=== PATIENT | male | born 1955 | race Caucasian/White ===

== ENCOUNTER 2017-02-17 14:55 | Inpatient (IN) ==
[2017-02-17] MEDS ORDERED: ALBUTEROL/IPRATROPIUM 2.5mg-0.5mg/3ml NEB IPPB ONE (15:06)
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
--- OUTSIDE RECORDS SUMMARY | 2017-02-17 16:15 | External Medical Summary | Referral Summary ---
:1955 Author Organization [facility] Address [address] [place] [address] Care Team Providers Name Role Phone Javad Womack V Primary Care Physician Encounter [facility] [id number] Date(s): 06/29/16 - 06/29/16 [facility] [address] [place] [address]- [place] Discharge Diagnosis: Shortness of breath Discharge Disposition: 01-Home or Self Care Attending Physician: Delicia Graves MD Admitting Physician: Delicia Graves MD Vital Signs No data available for this section Problem List Condition Effective Dates Status Health Status Informant Acute hepatitis C Resolved (disorder)(Confirmed) Acute hepatitis C without mention of Active hepatic coma(Confirmed) Chronic back pain syndrome- Active cervical, lumbar(Confirmed)1 Bronchitis (disorder)(Confirmed) Active BRONCHITIS, NOT SPECIFIED ACUTE Active OR CHRONIC(Confirmed) Carpal tunnel syndrome(Confirmed) Active COPD(Confirmed) < 12/29/13 Resolved Degenerative disorder of central Active nervous system(Confirmed) Generalized osteoarthritis Active (disorder)(Confirmed) Diabetes, type 2, unspec(Confirmed) Active Disorder of porphyrin metabolism Active (disorder)(Confirmed) Hypercholesterolemia(Confirmed) Active Infection of skin AND/OR Active subcutaneous tissue (disorder)(Confirmed) Left wrist fracture 03/31/11 Active (trapezium)(Confirmed) Low back pain (finding)(Confirmed) Active Osteoarthritis(Confirmed) Active Osteoporosis (disorder)(Confirmed) Active Osteoporosis(Confirmed) Active OTHER EMPHYSEMA(Confirmed) Active Encounter for chronic pain Active management(Confirmed) Polypharmacy(Confirmed) Active Porphyria(Confirmed) Active COPD, very severe(Confirmed) Active UNSPECIFIED LOCAL INFECTION OF SKIN Active AND SUBCUTANEOUS TISSUE(Confirmed) 1see conversion document. Allergies, Adverse Reactions, Alerts Substance Reaction Severity Status midazolam Active Valium Active Medications Advair Diskus 500 mcg-50 mcg inhalation powder See Instructions, INHALE 1 PUFF TWICE DAILY, # 60 g, 2 Refill(s), [id number], INHALE 1 PUFF TWICE DAILY Start Date: 04/04/16 Status: Orderedatorvastatin 10 mg oral tablet 10 mg 1 tabs, Oral, Daily, # 30 tabs, 6 Refill(s), [id number], 1 tabs OralDaily Start Date: 05/15/16 Status: Orderedazithromycin 250 mg oral tablet 250 mg 1 tabs, Oral, Mon/We/Fr, X 30 days, # 13 tabs, 2 Refill(s), Pharmacy: [facility] [id number], 1 tabs Oral Mon//,x30 days Start Date: 05/27/16 Stop Date: 08/25/16 Status: OrderedColace 100 mg oral capsule 100 mg 1 caps, Oral, BID, as needed for constipation, # 20 caps, 0 Refill(s) Start Date: 03/18/16 Status: OrderedDULoxetine 60 mg oral delayed release capsule 60 mg 1 caps, Oral, Daily, # 90 caps, 1 Refill(s), [id number], 1 caps OralDaily Start Date: 05/12/16 Status: Orderedfamotidine 20 mg oral tablet 20 mg 1 tabs, Oral, BID, # 60 tabs, 3 Refill(s), [id number], 1 tabs Oral BID Start Date: 05/12/16 Status: Orderedgabapentin 800 mg oral tablet See Instructions, TAKE 1 TABLET BY MOUTH FOUR TIMES DAILY, # 120 tabs, 3 Refill( s), OZIEL, [id number], TAKE 1 TABLET BY MOUTH FOUR TIMES DAILY Start Date: 05/12/16 Status: OrderedHome Oxygen (DME) DME Item Oxymizer pendant. Titrate SaO2 >90%. DX: J44.9 [place]: 99, See Instructions, # 1 Each,0 Refill(s), Supply Start Date: 05/25/16 Status: Orderedipratropium-albuterol 0.5 mg-2.5 mg/3 mLinhalation solution See Instructions, USE 3 ML VIA NEBULIZER THREE TIMES DAILY AND EVERY 2 HOURS NEEDED, # 270 mL, 2 Refill(s), eRx: [facility] [id number], USE 3 ML VIA NEBULIZER THREE TIMES DAILY AND EVERY 2 HOURS NEEDED Start Date: 03/31/16 Status: OrderedmetFORMIN 500 mg oral tablet See Instructions, TAKE 1 TABLET BY MOUTH TWICE DAILY WITH MORNING AND EVENING MEALS, # 180 tabs, eRx: [facility] [id number], TAKE 1 TABLET BY MOUTH TWICE DAILY WITH MORNING AND EVENING MEALS Start Date: 06/02/16 Status: Orderedmethadone 10 mg oral tablet 40 mg 4 tabs, Oral, QID, # 480 tabs, 0 Refill(s), WRITTEN 06/15/16 Start Date: 06/22/16 Stop Date: 07/22/16 Status: OrderedMiscellaneous DME DME Item NIPPV (PCV 15/5, rate 12, 6L O2) 99 months or lifetime, See Instructions, # 1 Each, 0 Refill(s), Supply Start Date: 03/18/16 Status: OrderedMS Contin 15 mg/12 hr oral tablet, extended release See Instructions, 1 Oral q 12 hrs to last 30 days, # 60 tabs, 0 Refill(s), written 06/15/16 Start Date: 06/18/16 Status: Orderedmultivitamin Daily, 0 Refill(s) Start Date: 03/18/16 Status: Orderedpotassium chloride 20 mEq oral tablet, extended release 20 mEq 1 tabs, Oral, Daily, 0 Refill(s) Start Date: 03/18/16 Status: OrderedSpiriva 18 mcg inhalation capsule See Instructions, INHALE THE CONTENTS OF 1 CAPSULE VIA HANDIHALER ONCE DAILY, # 30 caps, 2 Refill(s), eRx: [facility] [id number], INHALE THE CONTENTS OF 1 CAPSULE VIA HANDIHALER ONCE DAILY Start Date: 04/04/16 Status: OrderedTums 500 mg, Chewed, TID, 0 Refill(s) Start Date: 03/18/16 Status: Ordered Results No data available for this section Immunizations Given and Recorded Vaccine Date Status Refusal Reason tetanus/diphth/pertuss (Tdap) adult/adol 11/12/15 Given influenza virus vaccine, inactivated 03/30/16 Given influenza virus vaccine, inactivated 02/28/15 Given influenza virus vaccine, inactivated 02/09/14 Recorded influenza virus vaccine, live 03/23/13 Given influenza virus vaccine, live 02/01/12 Given influenza virus vaccine, live 04/20/11 Given pneumococcal 13-valent conjugate vaccine 03/30/16 Given pneumococcal 23-polyvalent vaccine 02/28/15 Given pneumococcal 23-polyvalent vaccine 03/16/05 Recorded tetanus/diphtheria/pertussis, acel(Tdap) 04/14/10 Recorded Procedures Procedure Date Related Diagnosis Body Site Laminectomy with spinal fusion1 02/12/16 Bone density scan2 05/26/13 left ulnar nerve decom/Lt CMC arthro w/ APL 2011 transf DEXA diag4 03/04/11 Right knee replacement 09/08/10 Left knee replacement 06/09/10 Colonoscopy 06/24/09 CR right distal radius (Buhr) acc5 11/03/07 Closed treatment left fibular fracture6 2007 Anterior cervical diskectomy fusion 06/09/06 Occult blood 05/14/06 Carpal tunnel release (bilateral) 2006 EGD gastritis 2004 Eye examination7 Neck surgery Right elbow release8 Tonsillectomy 1Z31-I1 fusion, T12-L1 Fanaycimoot8yevs scan due in [id number] next Wij1our Next Ugv9jmn Next Gen.6see Next Gen7no diabetic xihknvxaplq2bxb Next Gen. Social History Social History Type Response Smoking Status Former smoker; Type: Cigarettes; Tobacco use per day: 1 Pack; Number of years: 54; Date Last Use: Quit 08/2015. Assessment and Plan No data available for this section
--- OUTSIDE RECORDS SUMMARY | 2017-02-17 16:15 | External Medical Summary | Referral Summary ---
:1955 Author Organization [facility] Address [address] [place] [address] Care Team Providers Name Role Phone Javad Womack V Primary Care Physician Encounter [facility] Date(s): 06/29/16 - 06/29/16 [facility] [address] [place] [address]- [place] Discharge Diagnosis: COPD, very severe Discharge Diagnosis: Lung nodule Discharge Diagnosis: Chronic respiratory failure Discharge Disposition: 01-Home or Self Care Attending Physician: Delicia Graves MD Admitting Physician: Delicia Graves MD Vital Signs Most recent to oldest [Reference Range]: 1 Peripheral Pulse Rate [60-100 bpm] 83 bpm (06/29/16 3:28 PM) Respiratory Rate [14-20 br/min] 20 br/min (06/29/16 3:28 PM) Blood Pressure [90-140/60-90 mmHg] 113/87 mmHg (06/29/16 3:28 PM) SpO2 91 % (06/29/16 3:28 PM) Problem List Condition Effective Dates Status [...] DAILY, # 60 g, 2 Refill(s), eRx: [facility] [id number], INHALE 1 PUFF TWICE DAILY Start Date: 04/04/16 Status: Orderedatorvastatin 10 mg oral tablet 10 mg 1 tabs, Oral, Daily, # 30 tabs, 6 Refill(s), Pharmacy: [facility] [id number], 1 tabs OralDaily Start Date: 05/15/16 Status: Orderedazithromycin 250 mg oral tablet 250 mg 1 tabs, Oral, Mon/We/Fr, X 30 days, # 13 tabs, 2 Refill(s), Pharmacy: [facility] [id number], 1 tabs Oral Mon/We/Fr,x30 days Start Date: 05/27/16 Stop Date: 08/25/16 Status: OrderedColace 100 mg oral capsule 100 mg 1 caps, Oral, BID, as needed for constipation, # 20 caps, 0 Refill(s) Start Date: 03/18/16 Status: OrderedDULoxetine 60 mg oral delayed release capsule 60 mg 1 caps, Oral, Daily, # 90 caps, 1 Refill(s), Pharmacy: [facility] [id number], 1 caps OralDaily Start Date: 05/12/16 Status: Orderedfamotidine 20 mg oral tablet 20 mg 1 tabs, Oral, BID, # 60 tabs, 3 Refill(s), Pharmacy: [facility] [id number], 1 tabs Oral BID Start Date: 05/12/16 Status: Orderedgabapentin 800 mg oral tablet See Instructions, TAKE 1 TABLET BY MOUTH FOUR TIMES DAILY, # 120 tabs, 3 Refill( s), OZIEL, Pharmacy: [facility] [id number], TAKE 1 TABLET BY MOUTH FOUR TIMES [...] NEEDED, # 270 mL, 2 Refill(s), eRx: [facility] [id number], USE 3 ML VIA NEBULIZER THREE TIMES DAILY AND EVERY 2 HOURS NEEDED Start Date: 03/31/16 Status: OrderedmetFORMIN 500 mg oral tablet See Instructions, TAKE 1 TABLET BY MOUTH TWICE DAILY WITH MORNING AND EVENING MEALS, # 180 tabs, eRx: [facility] [id number], TAKE 1 TABLET BY MOUTH TWICE DAILY [...] DAILY, # 30 caps, 2 Refill(s), eRx: [facility], INHALE THE CONTENTS OF 1 CAPSULE VIA [...] nerve decom/Lt [facility]MC arthro w/ APL 2011 transf3 DEXA diag4 03/04/11 Right knee replacement 09/08/10 Left knee replacement 06/09/10 Colonoscopy 06/24/09 CR right distal radius (Buhr) acc5 11/03/07 Closed treatment left fibular fracture6 2007 Anterior cervical diskectomy fusion 06/09/06 Occult blood 05/14/06 Carpal tunnel release (bilateral) 2006 EGD gastritis 2004 Eye examination7 Neck surgery Right elbow release8 Tonsillectomy 4T45-N4 fusion, T12-L1 Nbrkfrcquvk4cjww scan due in [id number] next Meh0iya Next Cqi1wbq Next Gen.6see Next Gen7no diabetic zfzbszgluho0nzs Next Gen. Social History Social History Type Response Smoking Status Former smoker; Type: Cigarettes; Tobacco use per day: 1 Pack; Number of years: 54; Date Last Use: Quit 08/2015. Assessment and Plan Extracted from: Title: Office Visit Note Author: Delicia Graves MD Date: Assessment/Plan Very pleasant 60-year-old gentleman is here for follow-up 1.COPD, very severe Very severe COPD, end-stage Patient is very limited in terms of his activity level Patient is on maximal therapy He is on azithromycin to reduce risk of exacerbation Unfortunately noncompliant with his noninvasive ventilatorgiven that he has a constantly because of the BX. Advised shave his archuleta 6 minute walk testshowed very limited walking distance withsevere shortness of breath towards and80 HisBODE score is 8 with a 4 year survival of 18 percent 2.Lung nodule Concerningspiculated lung nodule with right paratracheal lymphadenopathy of unclear etiology We'll start with a PET scan given the highpretest probability of lung cancerand the high risk associated with biopsy at this point 3.Chronic respiratory failure Continue using grqgvo01/70 Patient was advised to use hisnoninvasive home ventilatorregularly at night to use risk ofacute and chronic respiratory failurehospitalization and even We'll schedule follow-up after PET scan
--- OUTSIDE RECORDS SUMMARY | 2017-02-17 16:16 | External Medical Summary | Referral Summary ---
:1955 Author Organization [facility] [place] [address] Care Team Providers Name Role Phone Javad Womack V Primary Care Physician Encounter [facility] Date(s): 02/28/15 - 02/28/15 [facility] [place] [address] Discharge Diagnosis: Chronic obstructive pulmonary disease Discharge Disposition: 01-Home or Self Care Attending Physician: Karen Garnica APRN Admitting Physician: Karen Garnica APRN Vital Signs Most recent to oldest [Reference Range]: 1 Temperature Tympanic [36.6-38.1 degC] 36.4 degC *LOW* (02/28/15 10:14 AM) Peripheral Pulse Rate [60-100 bpm] 88 bpm (02/28/15 10:14 AM) Blood Pressure [90-140/60-90 mmHg] 128/88 mmHg (02/28/15 10:14 AM) SpO2 82 % (02/28/15 10:14 AM) Problem List Condition Effective Dates Status Health [...] DAILY, # 60 g, 5 Refill(s), eRx: [facility] , INHALE 1 PUFF TWICE DAILY Start Date: 08/29/15 Status: Orderedatorvastatin 10 mg oral tablet See Instructions, TAKE 1 TABLET BY MOUTH EVERY NIGHT AT BEDTIME, # 30 tabs, 5 Refill(s), eRx: [facility] , TAKE 1 TABLET BY MOUTH EVERY NIGHT AT BEDTIME Start Date: 08/29/15 Status: OrderedCalcium 600+D 1 tabs, Oral, BID, 0 Refill(s) Start Date: 12/28/13 Status: Orderedclobetasol 0.05% topical ointment See Instructions, APPLY A THIN LAYER TOPICALLY TO THE AFFECTED AREA TWICE DAILY , # 45 g, 2 Refill(s), OZIEL, eRx: [facility] , APPLY A THIN LAYER TOPICALLY TO THE AFFECTED AREA TWICE DAILY Start Date: 03/20/14 Status: OrderedDULoxetine 60 mg oral delayed release capsule See Instructions, TAKE 1 CAPSULE BY MOUTH EVERY DAY, # 90 caps, eRx: [facility] , TAKE 1 CAPSULE BY MOUTH EVERY DAY Start Date: 08/29/15 Status: Orderedgabapentin 800 mg oral tablet See Instructions, TAKE 1 TABLET BY MOUTH FOUR TIMES DAILY, # 120 tabs, 5 Refill( s), OZIEL, eRx: [facility] , TAKE 1 TABLET BY MOUTH FOUR TIMES DAILY Start Date: 08/19/15 Status: OrderedGlucometer (DME) DME Item TRUETRACK OR TRUERESULTS METER DX 250.00, See Instructions, # 1 Each, 0 Refill(s), Pharmacy: [facility] [id number], TRUETRACK OR TRUERESULTS METER DX 250.00, Supply Start Date: 02/09/14 Status: OrderedGlucometer Lancets (DME) DME Item dx 250.00 check once daily lancet device for TRUETRACK OR TRUE RESULTS , See Instructions, # 1 Each, 0 Refill(s), Pharmacy: [facility] [id number] , dx 250.00 check once daily lancet device for TRUETRACK OR TRUE RESULTS, Supply Start Date: 02/09/14 Status: OrderedGlucometer strips (DME) DME Item truetest or trueresult meter test once daily dx 250.00, See Instructions, # 1 Each, 0 Refill(s), Pharmacy: [facility], truetest or trueresult meter test once daily dx 250.00, Supply Start Date: 02/09/14 Status: Orderedlevofloxacin 250 mg oral tablet See Instructions, TAKE ONE TABLET BY MOUTH DAILY, # 30 tabs, eRx: [facility] [id number], TAKE ONE TABLET BY MOUTH DAILY Start Date: 08/26/15 Status: OrderedmetFORMIN 500 mg oral tablet See Instructions, TAKE 1 TABLET BY MOUTH TWICE DAILY WITH MORNING AND EVENING MEALS, # 60 tabs, 5 Refill(s), [facility]Rx: [facility] [id number], TAKE 1 TABLET BY MOUTH TWICE DAILY WITH MORNING AND EVENINGMEALS Start Date: 11/28/14 Status: Orderedmethadone 10 mg oral tablet 30 mg 3 tabs, Oral, QID, MUST LAST ONE MONTH, # 360 tabs, 0 Refill(s) Start Date: 09/06/15 Status: OrderedMS Contin 60 mg/12 hours oral tablet, extended release 60 mg 1 tabs, Oral, q12hr, # 60 tabs, 0 Refill(s) Start Date: 09/06/15 Status: OrderedMucinex DM 30 mg-600 mg oral [...] DAILY, # 30 caps, 5 Refill(s), eRx: [facility] [address], INHALE THE CONTENTS OF 1 CAPSULE VIA HANDIHALER ONCE DAILY Start Date: 08/19/15 Status: OrderedVentolin HFA 2 puffs, Inhalation, QID, 0 Refill(s) Start Date: 12/28/13 Status: Ordered Results No data available for this section Immunizations Vaccine Date Refusal Reason influenza virus vaccine, inactivated 02/28/15 influenza virus vaccine, inactivated 02/09/14 influenza virus vaccine, live 03/23/13 influenza virus vaccine, live 02/01/12 influenza virus vaccine, live 04/20/11 pneumococcal 23-polyvalent vaccine 02/28/15 pneumococcal 23-polyvalent vaccine 03/16/05 tetanus/diphtheria/pertussis, acel(Tdap) 04/14/10 Procedures Procedure Date Related Diagnosis Body Site Bone density scan1 05/26/13 left ulnar nerve decom/Lt CMC arthro w/ APL 2011 transf DEXA diag3 03/04/11 Right knee replacement 09/08/10 Left knee replacement 06/09/10 Colonoscopy 06/24/09 CR right distal radius (Buhr) acc4 11/03/07 Closed treatment left fibular fracture5 2007 Anterior cervical diskectomy fusion 06/09/06 Occult blood 05/14/06 Carpal tunnel release (bilateral) 2006 EGD gastritis 2004 Eye examination6 Neck surgery Right elbow release7 Tonsillectomy 1next scan due in [id number] next Ahh2iyc Next Ogg9krb Next Gen.5see Next Gen6no diabetic gkibwrjgmpo2ydo Next Gen. Social History Social History Type Response Smoking Status Current every day smoker; Type: Cigarettes; Tobacco use per day : Less than Pack Assessment and Plan Extracted from: Title: Office Visit Note-O2 recert Author: Karen Garnica APRN Date: Assessment/Plan Chronic obstructive pulmonary disease Jvmn-nq-njkc evaluation for oxygen therapy. Patient qualifies. Continue long-term. Encourage compliance with medications. Encourage smoking cessation. High-dose influenza vaccine given today. Pneumovax given today. Follow up in office as previously recommended. Ordered: Office Visit Level 3 Est 51917
--- OUTSIDE RECORDS SUMMARY | 2017-02-17 16:16 | External Medical Summary | Referral Summary ---
:1955 Author Organization [facility] [address] [place] [address] Care Team Providers Name Role Phone Javad Womack V Primary Care Physician Encounter [facility] Date(s): 03/30/16 - 03/30/16 [facility] [place] [address] Discharge Diagnosis: Gastroenteritis Discharge Diagnosis: Compression fracture of L1 lumbar vertebra with routine healing Discharge Diagnosis: Diabetes Discharge Diagnosis: Chronic obstructive pulmonary disease Discharge Diagnosis: Encounter for chronic pain management Discharge Disposition: 01-Home or Self Care Attending Physician: Javad Womack MD Admitting Physician: Javad Womack MD Vital Signs Most recent to oldest [Reference Range]: 1 Temperature Tympanic [36.6-38.1 degC] 35.7 degC *LOW* (03/30/16 2:19 PM) Peripheral Pulse Rate [60-100 bpm] 91 bpm (03/30/16 2:19 PM) Blood Pressure [90-140/60-90 mmHg] 143/90 mmHg *HI* (03/30/16 2:19 PM) SpO2 82 % (03/30/16 2:19 PM) Problem List Condition Effective Dates Status [...] 1 PUFF TWICE DAILY, # 60 g, eRx: [email or web address] 28716, INHALE 1 PUFF TWICE DAILY Start Date: 02/24/16 Status: Orderedatorvastatin 10 mg oral tablet See Instructions, TAKE 1 TABLET BY MOUTH EVERY NIGHT AT BEDTIME, # 90 tabs, 1 Refill(s), Pharmacy: [facility] 53777, TAKE 1 TABLET BY MOUTH EVERY NIGHT AT BEDTIME Start Date: 03/04/16 Status: OrderedColace 100 mg oral capsule 100 mg 1 caps, Oral, BID, as needed for constipation, # 20 caps, 0 Refill(s) Start Date: 03/18/16 Status: OrderedDULoxetine 60 mg oral delayed release capsule 60 mg 1 caps, Oral, Daily, # 90 caps, 1 Refill(s), Pharmacy: [facility] 66387, 1 caps OralDaily Start Date: 11/29/15 Status: OrderedDuoNeb 0.5 mg-2.5 mg/3 mL inhalation solution 3 mL, NEB, TID, and every 2 hours as needed, # 270 mL, 0 Refill(s), Pharmacy: [facility] [address] Start Date: 03/19/16 Status: Orderedfamotidine 20 mg oral tablet 20 mg 1 tabs, Oral, BID, # 60 tabs, 0 Refill(s), Pharmacy: [email or web address] 19175, 1 tabs Oral BID Start Date: 03/19/16 Status: Orderedgabapentin 800 mg oral tablet See Instructions, TAKE 1 TABLET BY MOUTH FOUR TIMES DAILY, # 120 tabs, OZIEL, eRx : [email or web address] 42695, TAKE 1 TABLET BY MOUTH FOUR TIMES DAILY Start Date: 02/10/16 Status: Orderedmethadone 10 mg oral tablet 40 mg 4 tabs, Oral, QID, MUST LAST 30 DAYS, X 30 days, # 480 tabs, 0 Refill(s), WRITTEN 03/30/16 Start Date: 03/30/16 Stop Date: 04/29/16 Status: OrderedMiscellaneous DME DME Item NIPPV (PCV 15/5, rate 12, 6L O2) 99 months or lifetime, See Instructions, # 1 Each, 0 Refill(s), Supply Start Date: 03/18/16 Status: OrderedMS Contin 15 mg/12 hr oral tablet, extended release See Instructions, 1 tablet every 12 hours, # 42 tabs, 0 Refill(s) Start Date: 03/30/16 Status: Orderedmultivitamin Daily, 0 Refill(s) Start Date: 03/18/16 Status: Orderedondansetron 4 mg oral tablet, disintegrating 4 mg 1 tabs, Oral, q4hr, as needed nausea, # 30 tabs, 0 Refill(s), Pharmacy: [email or web address], 1 tabs Oral q4hr,PRN:as needed nausea Start Date: 03/18/16 Stop Date: 04/17/16 Status: Orderedpotassium chloride 20 mEq oral tablet, extended release 20 mEq 1 tabs, Oral, Daily, 0 Refill(s) Start Date: 03/18/16 Status: OrderedSpiriva 18 mcg inhalation capsule See Instructions, INHALE THE CONTENTS OF 1 CAPSULE VIA HANDIHALER ONCE DAILY, # 30 caps, eRx: [email or web address] [id number], INHALE THE CONTENTS OF 1 CAPSULE VIA HANDIHALER ONCE DAILY Start Date: 02/24/16 Status: OrderedTums 500 mg, Chewed, TID, 0 Refill(s) Start Date: 03/18/16 Status: Ordered Results Chemistry Most recent to oldest [Reference Range]: 1 Sodium Lvl [135-144 mEq/L] 139 mEq/L (03/30/16 3:13 PM) Potassium Lvl [3.5-5.2 mEq/L] 4.1 mEq/L (03/30/16 3:13 PM) Chloride [99-111 mEq/L] 99 mEq/L (03/30/16 3:13 PM) CO2 [23-31 mEq/L] 30 mEq/L (03/30/16 3:13 PM) AGAP [3-20] 10 (03/30/16 3:13 PM) BUN [8-26 mg/dL] 10 mg/dL (03/30/16 3:13 PM) Glucose Lvl [70-99 mg/dL] 113 mg/dL *HI* (03/30/16 3:13 PM) Creatinine Lvl [0.72-1.25 mg/dL] 0.69 mg/dL *LOW* (03/30/16 3:13 PM) eGFR [>60 mL/min] >60 mL/min 1 (03/30/16 3:13 PM) Calcium Lvl [8.9-10.5 mg/dL] 9.2 mg/dL (03/30/16 3:13 PM) 1Result Comment: Multiply eGFR results by 1.21 for race. Immunizations Vaccine Date Refusal Reason tetanus/diphth/pertuss (Tdap) adult/adol 11/12/15 influenza virus vaccine, inactivated 03/30/16 influenza virus vaccine, inactivated 02/28/15 influenza virus vaccine, inactivated 02/09/14 influenza virus vaccine, live 03/23/13 influenza virus vaccine, live 02/01/12 influenza virus vaccine, live 04/20/11 pneumococcal 13-valent conjugate vaccine 03/30/16 pneumococcal 23-polyvalent vaccine 02/28/15 pneumococcal 23-polyvalent vaccine [...] Carpal tunnel release (bilateral) 2006 EGD gastritis 2003 Eye examination7 Neck surgery Right elbow release8 Tonsillectomy 7I96-W4 fusion, T12-L1 Cejwqjgmkfr2eygj scan due in [id number] next Dqh4kmh Next Djr2pvf Next Gen.6see Next Gen7no diabetic hbhiyrgmhtz8aqh Next Gen. Social History Social History Type Response Smoking Status Former smoker Assessment and Plan Extracted from: Title: OV Author: Javad Womack MD Date: 03/30/16 Impression and Plan Diagnosis Chronic obstructive pulmonary disease (YVF20-JW J44.9, Discharge, Medical). Encounter for chronic pain management (LWG40-BL G89.29, Discharge, Medical). Compression fracture of L1 lumbar vertebra with routine healing (YAU60-EI S32.010D, Discharge, Medical). Gastroenteritis (FMQ45-OQ K52.9, Discharge, Medical). Diabetes (VNW96-FY E11.9, Discharge, Medical). Orders Orders (Selected) Outpatient Orders Future (On Hold) BMP: Prescriptions Prescribed MS Contin 15 mg/12 hr oral tablet, extended release: See Instructions, 1 tablet every 12 hours, 42 tabs, 0 Refill(s) methadone 10 mg oral tablet: 40 mg=4 tabs, Oral, QID, for 30 days, MUST LAST 30 DAYS, 480 tabs, 0 Refill(s).
--- OUTSIDE RECORDS SUMMARY | 2017-02-17 16:16 | External Medical Summary | Referral Summary ---
:1955 Author Organization [facility] Address [address] [place] [address] Care Team Providers Name Role Phone Javad Womack V Primary Care Physician Encounter VC Date(s): 05/25/16 - 05/25/16 [facility] [address] [place] [address]- [place] Discharge Diagnosis: COPD, severe Discharge Diagnosis: Chronic hypoxemic respiratory failure Discharge Disposition: -Home or Self Care Attending Physician: Delicia Graves MD Admitting Physician: Delicia Graves MD Referring Physician: Javad Womack MD Vital Signs Most recent to oldest [Reference Range]: 1 Peripheral Pulse Rate [60-100 bpm] 96 bpm (05/25/16 2:49 PM) Respiratory Rate [14-20 br/min] 18 br/min (05/25/16 2:49 PM) Blood Pressure [90-140/60-90 mmHg] 98/70 mmHg (05/25/16 2:49 PM) SpO2 90 % (05/25/16 2:49 PM) Problem List Condition Effective Dates Status [...] DAILY, # 60 g, 2 Refill(s), eRx: [facility] [id number], INHALE 1 PUFF TWICE DAILY Start Date: 04/04/16 Status: Orderedatorvastatin 10 mg oral tablet 10 mg 1 tabs, Oral, Daily, # 30 tabs, 6 Refill(s), Pharmacy: [facility] [id number], 1 tabs OralDaily Start Date: 05/15/16 Status: OrderedColace 100 mg oral capsule 100 mg 1 caps, Oral, BID, as needed for constipation, # 20 caps, 0 Refill(s) Start Date: 03/18/16 Status: OrderedDULoxetine 60 mg oral delayed release capsule 60 mg 1 caps, Oral, Daily, # 90 caps, 1 Refill(s), Pharmacy: [facility] [id number], 1 caps OralDaily Start Date: 05/12/16 Status: Orderedfamotidine 20 mg oral tablet 20 mg 1 tabs, Oral, BID, # 60 tabs, 3 Refill(s), Pharmacy: [facility] [id number], 1 tabs Oral BID Start Date: 05/12/16 Status: Orderedgabapentin 800 mg oral tablet See Instructions, TAKE 1 TABLET BY MOUTH FOUR TIMES DAILY, # 120 tabs, 3 Refill( s), OZIEL, Pharmacy: [facility] [id number], TAKE 1 TABLET BY MOUTH FOUR TIMES [...] NEEDED, # 270 mL, 2 Refill(s), eRx: [facility] [id number], USE 3 ML VIA NEBULIZER THREE TIMES DAILY AND EVERY 2 HOURS NEEDED Start Date: 03/31/16 Status: Orderedmethadone 10 mg oral tablet 40 mg 4 tabs, Oral, QID, X 30 days, # 480 tabs, 0 Refill(s) Start Date: 05/15/16 Stop Date: 06/14/16 Status: OrderedMiscellaneous DME DME Item NIPPV (PCV 21/09, rate 12, 6L O2) 99 months or lifetime, See Instructions, # 1 Each, 0 Refill(s), Supply Start Date: 03/18/16 Status: OrderedMS Contin 15 mg/12 hr oral tablet, extended release See Instructions, 1 Oral q 12 hrs to last 30 days, # 60 tabs, 0 Refill(s), written 05/15/16 Start Date: 05/15/16 Status: Orderedmultivitamin Daily, 0 Refill(s) Start Date: 03/18/16 Status: Orderedpotassium chloride 20 mEq oral tablet, extended release 20 mEq 1 tabs, Oral, Daily, 0 Refill(s) Start Date: 03/18/16 Status: OrderedSpiriva 18 mcg inhalation capsule See Instructions, INHALE THE CONTENTS OF 1 CAPSULE VIA HANDIHALER ONCE DAILY, # 30 caps, 2 Refill(s), eRx: [facility] [id number], INHALE THE CONTENTS OF 1 CAPSULE VIA [...] examination7 Neck surgery Right elbow release8 Tonsillectomy 3V13-U2 fusion, T12-L1 Kkrisedjgwf1saeq scan due in [address]pcb next Seo3clu Next Nhu9qvm Next Gen.6see Next Gen7no diabetic [id number] Next Gen. Social History Social History Type Response Smoking Status Former smoker; Type: Cigarettes; Tobacco use per day: 1 Pack; Number of years: 54; Date Last Use: Quit 08/2015. Assessment and Plan No data available for this section
--- OUTSIDE RECORDS SUMMARY | 2017-02-17 16:16 | External Medical Summary | Referral Summary ---
:1955 Author Organization [facility] [place] [address] Care Team Providers Name Role Phone Jonelle Womack V Primary Care Physician Encounter VC Date(s): 04/29/15 - 04/29/15 [facility] [place] [address] Discharge Diagnosis: Osteoporosis Discharge Diagnosis: Back pain Discharge Diagnosis: Porphyria Discharge Diagnosis: Tobacco abuse Discharge Diagnosis: History of hepatitis C Discharge Disposition: 01-Home or Self Care Attending Physician: Jonelle Womack MD Admitting Physician: Jonelle Womack MD Vital Signs Most recent to oldest [Reference Range]: 1 Temperature Tympanic [36.6-38.1 degC] 36.2 degC *LOW* (04/29/15 1:22 PM) Peripheral Pulse Rate [60-100 bpm] 66 bpm (04/29/15 1:22 PM) Blood Pressure [90-140/60-90 mmHg] 128/86 mmHg (04/29/15 1:22 PM) SpO2 93 % (04/29/15 1:22 PM) Problem List Condition Effective Dates Status [...] (disorder)(Confirmed) Active Osteoporosis(Confirmed) Active OTHER EMPHYSEMA(Confirmed) Active Porphyria(Confirmed) Active UNSPECIFIED LOCAL INFECTION OF SKIN Active AND SUBCUTANEOUS TISSUE(Confirmed) 1see conversion document. Allergies, Adverse Reactions, Alerts Substance Reaction Severity Status midazolam Active Medications Advair Diskus 250 mcg-50 mcg inhalation powder 1 puffs, Inhalation, BID, # 180 Each, 1 Refill(s), Pharmacy: [facility] [id number] Start Date: 12/27/14 Status: Orderedatorvastatin 10 mg oral tablet See Instructions, 1 TABS ORAL BEDTIME (ONCE A DAY), # 30 tabs, 5 Refill(s), Pharmacy: [facility] [id number], 1 TABS ORAL BEDTIME (ONCE A DAY) Start Date: 10/26/14 Status: OrderedCalcium 600+D 1 tabs, Oral, BID, 0 Refill(s) Start Date: 12/28/13 Status: Orderedclobetasol 0.05% topical ointment See Instructions, APPLY A THIN LAYER TOPICALLY TO THE AFFECTED AREA TWICE DAILY , # 45 g, 2 Refill(s), OZIEL, eRx: [facility] [id number], APPLY A THIN LAYER TOPICALLY TO THE AFFECTED AREA TWICE DAILY Start Date: 03/20/14 Status: OrderedDULoxetine 60 mg oral delayed release capsule 60 mg 1 caps, Oral, Daily, NOTE DOSE CHANGE, # 90 caps, 2 Refill(s), Pharmacy: [facility] [id number], 1 caps Oral Daily,Instr:NOTE DOSE CHANGE Start Date: 12/11/14 Status: Orderedgabapentin 800 mg oral tablet See Instructions, TAKE 1 TABLET BY MOUTH FOUR TIMES DAILY, # 120 tabs, 4 Refill( s), OZIEL, eRx: [facility] [id number], TAKE 1 TABLET BY MOUTH FOUR TIMES DAILY Start Date: 12/27/14 Status: OrderedGlucometer (DME) DME Item TRUETRACK OR TRUERESULTS METER DX 250.00, See Instructions, # 1 Each, 0 Refill(s), Pharmacy: [facility] [id number], TRUETRACK OR TRUERESULTS METER DX 250.00, Supply Start Date: 02/09/14 Status: OrderedGlucometer Lancets (DME) DME Item dx 250.00 check once daily lancet device for TRUETRACK OR TRUE RESULTS , See Instructions, # 1 Each, 0 Refill(s), Pharmacy: [facility] [id number] , dx 250.00 check once daily lancet device for TRUETRACK OR TRUE RESULTS, Supply Start Date: 02/09/14 Status: OrderedGlucometer strips (DME) DME Item truetest or trueresult meter test once daily dx 250.00, See Instructions, # 1 Each, 0 Refill(s), Pharmacy: [facility] [id number], truetest or trueresult meter test once daily dx 250.00, Supply Start Date: 02/09/14 Status: Orderedlevofloxacin 250 mg oral tablet See Instructions, TAKE ONE TABLET BY MOUTH DAILY, # 30 tabs, 2 Refill(s), [facility] [id number], TAKE ONE TABLET BY MOUTH DAILY Start Date: 03/19/15 Status: OrderedmetFORMIN 500 mg oral tablet See Instructions, TAKE 1 TABLET BY MOUTH TWICE DAILY WITH MORNING AND EVENING MEALS, # 60 tabs, 5 Refill(s), [facility] [id number], TAKE 1 TABLET BY MOUTH TWICE DAILY WITH MORNING AND EVENINGMEALS Start Date: 11/28/14 Status: Orderedmethadone 10 mg oral tablet 30 mg 3 tabs, Oral, QID, # 360 tabs, 0 Refill(s) Start Date: 04/08/15 Status: OrderedMS Contin 60 mg/12 hours oral tablet, extended release 60 mg 1 tabs, Oral, q12hr, # 60 tabs, 0 Refill(s) Start Date: 04/08/15 Status: OrderedMucinex DM 30 mg-600 mg oral [...] OrderedSpiriva 18 mcg inhalation capsule See Instructions, 1 EACH INHALATION DAILY, # 30 Each, 5 Refill(s), Pharmacy: [facility] [id number], 1 EACH INHALATION DAILY Start Date: 11/28/14 Status: OrderedVentolin HFA 2 puffs, Inhalation, QID, 0 Refill(s) Start Date: 12/28/13 Status: Ordered Results Chemistry Most recent to oldest [Reference Range]: 1 Total CK [30-200 U/L] 55 U/L (04/29/15 2:37 PM) LDL Direct [0-129 mg/dL] 111 mg/dL (04/29/15 2:37 PM) Hgb A1c [4.1-5.6 %] 6.3 % *HI* (04/29/15 2:37 PM) eAvg Glucose 134.1 mg/dL (04/29/15 2:37 PM) Immunizations Vaccine Date Refusal Reason influenza virus [...] elbow release7 Tonsillectomy 1next scan due in [id number] next Otv3cas Next Qlx1fdv Next Gen.5see Next Gen6no diabetic [id number] Next Gen. Social History Social History Type Response Smoking Status Current every day smoker; Type: Cigarettes; Tobacco use per day : Less than Pack Assessment and Plan Extracted from: Title: Get established Author: Jonelle Womack MD Date: 04/29/15 Assessment/Plan Back pain COPD, mild Ordered: Internal Referral to Pulmonology Diabetes mellitus, type 2 Ordered: Hemoglobin A1c History of hepatitis C Hyperlipemia Ordered: Creatine Kinase LDL Direct Osteoporosis Ordered: BD Bone Density DEXA Axial Skeleton Porphyria Tobacco abuse Orders: BD Bone Density DEXA Axial Skeleton Additional questions which may be sought from the old record include whether he had Reclast last year and how many years of Reclast he has had, the prior workup and management recommendations for porph yria, hepatitis C treatment and whether he is had a hepatitis C viral load test , and details about his previous neck surgery by Dr. Lai. I also have a question as to whether it is chand to continue the strategy of daily Levaquin. We discussed this. While it may help to suppress bacterial infection, it may also increase the risk of a resistant infection if he develops one. Based on his family history of a first-degree relative, he has do once again for colonoscopy. We will check CPK, direct LDL, A1c today. We will check bone density study in June, (which will be at least 2 years after the previous study). Referrals made to pulmonology and pain medicine. I advised I would approve a one-month supply of his opioid narcotics pending his getting established in pain medicine. Follow-up with me regarding o ther medical issues in one month or sooner if needed. Referrals to Other [id number], Do NOT utilize this order to schedule PFTs. PFTs need to be scheduled by calling [phone].Referring provider: DR JONELLE WOMACK Preference of which provider or first available?: FIRST AVAILABLEWhat is patient needing to be seen for (problem)?: COPD Has testing been done, and if so where (CXR, CTs, MRIs, Etc)?: N/APatient phone number: Referred by: Jonelle Womack MD
--- OUTSIDE RECORDS SUMMARY | 2017-02-17 16:16 | External Medical Summary | Referral Summary ---
:1955 Author Organization [facility] [place] [address] Care Team Providers Name Role Phone Javad Womack V Primary Care Physician Encounter VC Date(s): 05/31/15 - 05/31/15 [facility] [place] [address] Discharge Diagnosis: Encounter for chronic pain management Discharge Diagnosis: Disorder of porphyrin metabolism Discharge Diagnosis: Hepatitis-C Discharge Diagnosis: Back pain Discharge Diagnosis: Osteopenia Discharge Disposition: 01-Home or Self Care Attending Physician: Javad Womack MD Admitting Physician: Javad Womack MD Vital Signs Most recent to oldest [Reference Range]: 1 Temperature Tympanic [36.6-38.1 degC] 35.3 degC *LOW* (05/31/15 12:49 PM) Peripheral Pulse Rate [60-100 bpm] 96 bpm (05/31/15 12:49 PM) Blood Pressure [90-140/60-90 mmHg] 124/80 mmHg (05/31/15 12:49 PM) SpO2 91 % (05/31/15 12:49 PM) Problem List Condition Effective Dates Status [...] BID, # 180 Each, 1 Refill(s), Pharmacy: [facility] [id number] Start Date: 12/27/14 Status: OrderedAdvair Diskus 500 mcg-50 mcg inhalation powder 1 puffs, Inhalation, BID, # 60 Each, 3 Refill(s), Pharmacy: [facility] [id number] Start Date: 04/30/15 Status: Orderedatorvastatin 10 mg oral tablet See Instructions, 1 TABS ORAL BEDTIME (ONCE A DAY), # 30 tabs, eRx: [facility] [id number], 1 TABS ORAL BEDTIME (ONCE A DAY) Start Date: 05/07/15 Status: OrderedCalcium 600+D 1 tabs, Oral, BID, 0 Refill(s) Start Date: 12/28/13 Status: Orderedclobetasol 0.05% topical ointment See Instructions, APPLY A THIN LAYER TOPICALLY TO THE AFFECTED AREA TWICE DAILY , # 45 g, 2 Refill(s), OZIEL, eRx: [facility] [id number], APPLY A THIN LAYER TOPICALLY TO THE AFFECTED AREA TWICE DAILY Start Date: 03/20/14 Status: OrderedDULoxetine 60 mg oral delayed release capsule 60 mg 1 caps, Oral, Daily, NOTE DOSE CHANGE, # 90 caps, 2 Refill(s), Pharmacy: [facility] [id number], 1 caps Oral Daily,Instr:NOTE DOSE CHANGE Start Date: 12/11/14 Status: Orderedgabapentin 800 mg oral tablet See Instructions, TAKE 1 TABLET BY MOUTH FOUR TIMES DAILY, # 120 tabs, 4 Refill( s), OZIEL, eRx: [facility] [id number], TAKE 1 TABLET BY MOUTH FOUR TIMES DAILY Start Date: 12/27/14 Status: OrderedGlucometer (DME) DME Item TRUETRACK OR TRUERESULTS METER DX 250.00, See Instructions, # 1 Each, 0 Refill(s), Pharmacy: [facility] [facility] [place], TRUETRACK OR TRUERESULTS METER DX 250.00, Supply Start Date: 02/09/14 Status: OrderedGlucometer Lancets (DME) DME Item dx 250.00 check once daily lancet device for TRUETRACK OR TRUE RESULTS , See Instructions, # 1 Each, 0 Refill(s), Pharmacy: [facility] [place] [facility] [place] , dx 250.00 check once daily lancet device for TRUETRACK OR TRUE RESULTS, Supply Start Date: 02/09/14 Status: OrderedGlucometer strips (DME) DME Item truetest or trueresult meter test once daily dx 250.00, See Instructions, # 1 Each, 0 Refill(s), Pharmacy: [facility] [place], truetest or trueresult meter test once daily dx 250.00, Supply Start Date: 02/09/14 Status: Orderedlevofloxacin 250 mg oral tablet See Instructions, TAKE ONE TABLET BY MOUTH DAILY, # 30 tabs, 2 Refill(s), eRx: [facility] [facility] [place], TAKE ONE TABLET BY MOUTH DAILY Start Date: 03/19/15 Status: OrderedmetFORMIN 500 mg oral tablet See Instructions, TAKE 1 TABLET BY MOUTH TWICE DAILY WITH MORNING AND EVENING MEALS, # 60 tabs, 5 Refill(s), eRx: [facility] [place] [facility] [place], TAKE 1 TABLET BY MOUTH TWICE DAILY WITH MORNING AND EVENINGMEALS Start Date: 11/28/14 Status: Orderedmethadone 10 mg oral tablet 30 mg 3 tabs, Oral, QID, MAY FILL ON 05/08/15, # 360 tabs, 0 Refill(s) Start Date: 05/02/15 Status: OrderedMS Contin 60 mg/12 hours oral tablet, extended release 60 mg 1 tabs, Oral, q12hr, # 60 tabs, 0 Refill(s) Start Date: 05/08/15 Status: OrderedMucinex DM 30 mg-600 mg oral [...] DAILY, # 30 Each, 5 Refill(s), Pharmacy: [facility] [id number], 1 EACH INHALATION DAILY Start Date: 11/28/14 [...] elbow release7 Tonsillectomy 1next scan due in [id number] next Bxk1cga Next Soy7rbe Next Gen.5see Next Gen6no diabetic mbpiuqrsgjw5bmz Next Gen. Social History Social History Type Response Smoking Status Current every day smoker; Type: Cigarettes; Tobacco use per day : Less than Pack Assessment and Plan Extracted from: Title: CDM-chronic pain, others Author: Javad Womack MD Date: 05/31/15 Assessment/Plan Back pain Diabetes Ordered: Albumin Level Urine Disorder of porphyrin metabolism Encounter for chronic pain management Hepatitis-C Ordered: Hepatitis C RNA PCR Quantitative Osteopenia Ordered: BD Bone Density DEXA Axial Skeleton We will order a DEXA scan, and viral load hepatitis C test. Continue current pain management with follow-up on these issues in 3 months. At the end of the visit we also touched base on diabetes. He has always had good A1c's and his previous doctor told him not to worry about blood sugar testing. Looking back at his labs his last jose roalbumin test is somewhat remote and I will order that today. Plan to follow -up more regarding diabetes at his next visit with an A1c planned at that time.
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
--- OUTSIDE RECORDS SUMMARY | 2017-02-17 16:16 | External Medical Summary | Referral Summary ---
:1955 Author Organization [facility] Address [address] [place] [address] [place] [address] Care Team Providers Name Role Phone Javad Womack V Primary Care Physician Encounter VC Date(s): 05/01/15 - 05/01/15 [facility] [address] [place] [phone] Discharge Diagnosis: Contusion of left wrist Discharge Disposition: 01-Home or Self Care Attending Physician: Francesco Sheridan MD Admitting Physician: Francesco Sheridan MD Vital Signs Most recent to oldest [Reference Range]: 1 Temperature Tympanic [36.6-38.1 degC] 36.0 degC *LOW* (05/01/15 1:50 PM) Peripheral Pulse Rate [60-100 bpm] 84 bpm (05/01/15 1:50 PM) Respiratory Rate [14-20 br/min] 20 br/min (05/01/15 1:50 PM) Blood Pressure [90-140/60-90 mmHg] 130/76 mmHg (05/01/15 1:50 PM) SpO2 92 % (05/01/15 1:50 PM) Problem List Condition Effective Dates Status [...] BID, # 180 Each, 1 Refill(s), Pharmacy: [facility] [id number] Start Date: 12/27/14 Status: OrderedAdvair Diskus 500 mcg-50 mcg inhalation powder 1 puffs, Inhalation, BID, # 60 Each, 3 Refill(s), Pharmacy: [facility] 37758 Start Date: 04/30/15 Status: Orderedatorvastatin 10 mg oral tablet See Instructions, 1 TABS ORAL BEDTIME (ONCE A DAY), # 30 tabs, 5 Refill(s), [facility] [address], 1 TABS ORAL BEDTIME (ONCE A DAY) Start Date: 10/26/14 Status: OrderedCalcium 600+D 1 tabs, Oral, BID, 0 Refill(s) Start Date: 12/28/13 Status: Orderedclobetasol 0.05% topical ointment See Instructions, APPLY A THIN LAYER TOPICALLY TO THE AFFECTED AREA TWICE DAILY , # 45 g, 2 Refill(s), OZIEL, eRx: [facility] 14330, APPLY A THIN LAYER TOPICALLY TO THE AFFECTED AREA TWICE DAILY Start Date: 03/20/14 Status: OrderedDULoxetine 60 mg oral delayed release capsule 60 mg 1 caps, Oral, Daily, NOTE DOSE CHANGE, # 90 caps, 2 Refill(s), Pharmacy: [facility] 77860, 1 caps Oral Daily,Instr:NOTE DOSE CHANGE Start Date: 12/11/14 Status: Orderedgabapentin 800 mg oral tablet See Instructions, TAKE 1 TABLET BY MOUTH FOUR TIMES DAILY, # 120 tabs, 4 Refill( s), OZIEL, eRx: [facility] [id number], TAKE 1 TABLET BY MOUTH FOUR TIMES DAILY Start Date: 12/27/14 Status: OrderedGlucometer (DME) DME Item TRUETRACK OR TRUERESULTS METER DX 250.00, See Instructions, # 1 Each, 0 Refill(s), Pharmacy: [facility], TRUETRACK OR TRUERESULTS METER DX 250.00, Supply Start Date: 02/09/14 Status: OrderedGlucometer Lancets (DME) DME Item dx 250.00 check once daily lancet device for TRUETRACK OR TRUE RESULTS , See Instructions, # 1 Each, 0 Refill(s), Pharmacy: [facility] , dx 250.00 check once daily lancet device for TRUETRACK OR TRUE RESULTS, Supply Start Date: 02/09/14 Status: OrderedGlucometer strips (DME) DME Item truetest or trueresult meter test once daily dx 250.00, See Instructions, # 1 Each, 0 Refill(s), Pharmacy: [facility], truetest or trueresult meter test once daily dx 250.00, Supply Start Date: 02/09/14 Status: Orderedlevofloxacin 250 mg oral tablet See Instructions, TAKE ONE TABLET BY MOUTH DAILY, # 30 tabs, 2 Refill(s), eRx: [facility], TAKE ONE TABLET BY MOUTH DAILY Start Date: 03/19/15 Status: OrderedmetFORMIN 500 mg oral tablet See Instructions, TAKE 1 TABLET BY MOUTH TWICE DAILY WITH MORNING AND EVENING MEALS, # 60 tabs, 5 Refill(s), eRx: [facility], TAKE 1 TABLET BY MOUTH TWICE DAILY [...] DAILY, # 30 Each, 5 Refill(s), [facility], 1 EACH INHALATION DAILY Start Date: 11/28/14 [...] elbow release7 Tonsillectomy 1next scan due in [address]agf next Xpg5orq Next Vxw5kzp Next Gen.5see Next Gen6no diabetic dyfcymzfwtq3lqs Next Gen. Social History Social History Type Response Smoking Status Current every day smoker; Type: Cigarettes; Tobacco use per day : Less than Pack Assessment and Plan Extracted from: Title: Office Visit Note Author: Francesco Sheridan MD Date: 05/01/15 Assessment/Plan Contusion of left wrist X-ray doesn't show any obvious fracture. I recommended a splint ice and restavoid any heavy lifting or heavy usage over the next few days. He is Early garret number of c hronic pain medications will continue to use those. If he has ongoing problems or further concerns he should follow-up. Pain in left wrist See above plan Ordered: XR Wrist Complete Left
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
--- OUTSIDE RECORDS SUMMARY | 2017-02-17 16:17 | External Medical Summary | Referral Summary ---
:1955 Author [facility] Address [address] [place] [address] [place] [address] Care Team Providers Name Role Phone Pasha Pack Primary Care Physician Encounter VC Date(s): 10/17/14 - 10/17/14 [facility] [address] [place] [phone] [place] Discharge Disposition: 01-Home or Self Care Attending Physician: Pasha Pack MD Admitting Physician: Pasha Pack MD Vital Signs Most recent to oldest [Reference Range]: 1 Temperature Tympanic [36.6-38.1 degC] 37.1 degC (10/17/14 11:06 AM) Peripheral Pulse Rate [60-100 bpm] 72 bpm (10/17/14 11:06 AM) Blood Pressure [90-140/60-90 mmHg] 114/72 mmHg (10/17/14 11:06 AM) SpO2 90 % (10/17/14 11:06 AM) Problem List Condition Effective Dates Status [...] BID, # 180 Each, 1 Refill(s), Pharmacy: [facility] [address] Start Date: 12/27/14 Status: Orderedatorvastatin 10 mg oral tablet See Instructions, 1 TABS ORAL BEDTIME (ONCE A DAY), # 30 tabs, 5 Refill(s), [facility] [place], 1 TABS ORAL BEDTIME (ONCE A DAY) Start Date: 10/26/14 Status: OrderedCalcium 600+D 1 tabs, Oral, BID, 0 Refill(s) Start Date: 12/28/13 Status: Orderedclobetasol 0.05% topical ointment See Instructions, APPLY A THIN LAYER TOPICALLY TO THE AFFECTED AREA TWICE DAILY , # 45 g, 2 Refill(s), OZIEL, eRx: [facility] [facility], APPLY A THIN LAYER TOPICALLY TO THE AFFECTED AREA TWICE DAILY Start Date: 03/20/14 Status: OrderedDULoxetine 60 mg oral delayed release capsule 60 mg 1 caps, Oral, Daily, NOTE DOSE CHANGE, # 90 caps, 2 Refill(s), Pharmacy: [facility] 55083, 1 caps Oral Daily,Instr:NOTE DOSE CHANGE Start Date: 12/11/14 Status: Orderedgabapentin 800 mg oral tablet See Instructions, TAKE 1 TABLET BY MOUTH FOUR TIMES DAILY, # 120 tabs, 4 Refill( s), OZIEL, eRx: [facility] 67518, TAKE 1 TABLET BY MOUTH FOUR TIMES DAILY Start Date: 12/27/14 Status: OrderedGlucometer (DME) DME Item TRUETRACK OR TRUERESULTS METER DX 250.00, See Instructions, # 1 Each, 0 Refill(s), Pharmacy: [facility] 18381, TRUETRACK OR TRUERESULTS METER DX 250.00, Supply Start Date: 02/09/14 Status: OrderedGlucometer Lancets (DME) DME Item dx 250.00 check once daily lancet device for TRUETRACK OR TRUE RESULTS , See Instructions, # 1 Each, 0 Refill(s), Pharmacy: [facility] 1988[address] , dx 250.00 check once daily lancet device for TRUETRACK OR TRUE RESULTS, Supply Start Date: 02/09/14 Status: OrderedGlucometer strips (DME) DME Item truetest or trueresult meter test once daily dx 250.00, See Instructions, # 1 Each, 0 Refill(s), Pharmacy: [facility] 57662, truetest or trueresult meter test once daily dx 250.00, Supply Start Date: 02/09/14 Status: Orderedlevofloxacin 250 mg oral tablet See Instructions, TAKE ONE TABLET BY MOUTH DAILY, # 30 tabs, 2 Refill(s), eRx: [facility] 85372, TAKE ONE TABLET BY MOUTH DAILY Start Date: 03/19/15 Status: OrderedmetFORMIN 500 mg oral tablet See Instructions, TAKE 1 TABLET BY MOUTH TWICE DAILY WITH MORNING AND EVENING MEALS, # 60 tabs, 5 Refill(s), eRx: [facility] 51152, TAKE 1 TABLET BY MOUTH TWICE DAILY [...] DAILY, # 30 Each, 5 Refill(s), Pharmacy: [facility] 04571, 1 EACH INHALATION DAILY Start Date: 11/28/14 Status: OrderedVentolin HFA 2 puffs, Inhalation, QID, 0 Refill(s) Start Date: 12/28/13 Status: Ordered Results Hematology Most recent to oldest [Reference Range]: 1 WBC [4.8-10.8 10*3/uL] 6.6 10*3/uL (10/17/14 11:44 AM) RBC [4.60-6.20 10*6/uL] 4.94 10*6/uL (10/17/14 11:44 AM) Hgb [14.0-18.0 gm/dL] 13.4 gm/dL *LOW* (10/17/14:44 AM) Hct [42.0-52.0 %] 42.8 % (10/17/14 11:44 AM) MCV [82.0-99.0 fL] 86.6 fL (10/17/14 11:44 AM) MCH [27.0-32.0 pg] 27.1 pg (10/17/14:44 AM) MCHC [32.0-36.0 gm/dL] 31.3 gm/dL *LOW* (10/17/14 11:44 AM) RDW [11.5-14.5 %] 17.0 % *HI* (10/17/14 11:44 AM) Platelet [150-400 10*3/uL] 204 10*3/uL (10/17/14 11:44 AM) MPV [8.8-14.8 fL] 9.7 fL (10/17/14 11:44 AM) Immature Granulocytes [0.0-1.0 %] 0.2 % (10/17/14 11:44 AM) Neutrophils [51-75 %] 56 % (10/17/14 11:44 AM) Lymphocytes [20-46 %] 33 % (10/17/14 11:44 AM) Monocytes [4-11 %] 9 % (10/17/14 11:44 AM) Eosinophils [0-4 %] 3 % (10/17/14 11:44 AM) Basophils [0-2 %] 1 % (10/17/14 11:44 AM) Neutro Absolute [1.90-7.00 10*3] 3.65 10*3 (10/17/14 11:44 AM) Lymph Absolute [0.80-3.30 10*3] 2.15 10*3 (10/17/14 11:44 AM) [place] Absolute [0.30-1.00 10*3] 0.56 10*3 (10/17/14 11:44 AM) Eos Absolute [0.00-0.50 10*3] 0.17 10*3 (10/17/14 11:44 AM) Baso Absolute [0.00-0.20 10*3] 0.03 10*3 (10/17/14 11:44 AM) Chemistry Most recent to oldest [Reference Range]: 1 Sodium Lvl [135-144 mEq/L] 146 mEq/L *HI* (10/17/14:44 AM) Potassium Lvl [3.5-5.2 mEq/L] 4.5 mEq/L (10/17/14:44 AM) Chloride [99-111 mEq/L] 100 mEq/L (10/17/14:44 AM) CO2 [23-31 mEq/L] 37 mEq/L *HI* (10/17/14:44 AM) AGAP [3-20] 9 (10/17/14:44 AM) BUN [8-26 mg/dL] 7 mg/dL *LOW* (10/17/14:44 AM) Glucose Lvl [70-99 mg/dL] 116 mg/dL *HI* (10/17/14:44 AM) Creatinine Lvl [0.72-1.25 mg/dL] 0.74 mg/dL (10/17/14:44 AM) eGFR [>60 mL/min] >60 mL/min 1 (10/17/14:44 AM) Calcium Lvl [8.9-10.5 mg/dL] 9.6 mg/dL (10/17/14:44 AM) Albumin Lvl [3.4-4.8 gm/dL] 4.2 gm/dL (10/17/14:44 AM) Total Protein [6.2-8.1 gm/dL] 7.0 gm/dL (6/10/15 11:44 AM) Globulin [1.8-4.0 gm/dL] 2.8 gm/dL (10/17/14 11:44 AM) ALT [0-55 U/L] 12 U/L (10/17/14 11:44 AM) AST [5-34 U/L] 21 U/L (10/17/14 11:44 AM) Alk Phos [40-150 U/L] 91 U/L (10/17/14 11:44 AM) Bili Total [0.2-1.2 mg/dL] 0.4 mg/dL (10/17/14 11:44 AM) 25-Hydroxy D2 <7 ng/mL (10/17/14:44 AM) 25-Hydroxy D3 45 ng/mL (10/17/14:44 AM) 25-Hydroxy D Total [30-74 ng/mL] 45 ng/mL 2 (10/17/14 11:44 AM) LDL Direct [0-129 mg/dL] 97 mg/dL (10/17/14 11:44 AM) Hgb A1c [4.1-5.6 %] 6.4 % *HI* (10/17/14 11:44 AM) eAvg Glucose 137.0 mg/dL (10/17/14 11:44 AM) 1Result Comment: Multiply eGFR results by 1.21 for race.2Result Comment: The desirable level of 25-Hydroxy Vitamin D Total(D2 + D3 ) is 30-74 ng/mL. A level consistently >200 is potentially toxic. Immunizations Vaccine Date Refusal Reason influenza virus [...] elbow release7 Tonsillectomy 1next [place] due in [address]kav next Ivj7rvs Next Nql8eaz Next Gen.5see Next Gen6no diabetic ewrufirrywn3wcj Next Gen. Social History Social History Type Response Smoking Status Current every day smoker; Type: Cigarettes; Tobacco use per day : Less than Pack Assessment and Plan Extracted from: Title: Office Visit Note Author: Pasha Pack MD Date: 10/17/14 Assessment/Plan Anemia Chronic back pain syndrome- cervical, lumbar COPD Diabetes, type 2, unspec Ordered: Hemoglobin A1c Hypercholesterolemia Ordered: Comprehensive Metabolic Panel LDL Direct Osteoporosis Ordered: Vitamin D 25 Hydroxy Level Porphyria Plan: Continue all current medications. I would like to check lab tests. I want you to follow-up in 3 months. Having any problems in the meantime let me know. Call when you need refills on medications. Ordered: CBC w/ Differential
--- OUTSIDE RECORDS SUMMARY | 2017-02-17 16:17 | External Medical Summary | Referral Summary ---
:1955 Author Organization [facility] [address] [place] [address] Care Team Providers Name Role Phone Javad Womack V Primary Care Physician Encounter VC HILARY [id number] Date(s): 08/08/15 - 08/08/15 [facility] [address] [place] [phone] [place] Discharge Diagnosis: Encounter for chronic pain management Discharge Diagnosis: Hypoxia Discharge Diagnosis: Chronic obstructive pulmonary disease Discharge Diagnosis: Diabetes Discharge Disposition: 01-Home or Self Care Attending Physician: Javad Womack MD Admitting Physician: Javad Womack MD Vital Signs Most recent to oldest [Reference Range]: 1 Peripheral Pulse Rate [60-100 bpm] 89 bpm (08/08/15 3:43 PM) Blood Pressure [90-140/60-90 mmHg] 122/88 mmHg (08/08/15 3:43 PM) SpO2 77 % (08/08/15 3:43 PM) Problem List Condition Effective Dates Status [...] midazolam Active Valium Active Medications Advair Diskus 250 mcg-50 mcg inhalation powder 1 puffs, Inhalation, BID, # 180 Each, 1 Refill(s), Pharmacy: [facility] [address] Start Date: 12/27/14 Status: OrderedAdvair Diskus 500 mcg-50 mcg inhalation powder 1 puffs, Inhalation, BID, # 60 Each, 3 Refill(s), Pharmacy: [facility] [address]114 Start Date: 04/30/15 Status: Orderedatorvastatin 10 mg oral tablet See Instructions, 1 TABS ORAL BEDTIME (ONCE A DAY), # 30 tabs, 1 Refill(s), eRx : [facility] , 1 TABS ORAL BEDTIME (ONCE A DAY) Start Date: 07/01/15 Status: OrderedCalcium 600+D 1 tabs, Oral, BID, 0 Refill(s) Start Date: 12/28/13 Status: Orderedclobetasol 0.05% topical ointment See Instructions, APPLY A THIN LAYER TOPICALLY TO THE AFFECTED AREA TWICE DAILY , # 45 g, 2 Refill(s), OZIEL, eRx: [facility] , APPLY A THIN LAYER TOPICALLY TO THE AFFECTED AREA TWICE DAILY Start Date: 03/20/14 Status: OrderedDULoxetine 60 mg oral delayed release capsule 60 mg 1 caps, Oral, Daily, NOTE DOSE CHANGE, # 90 caps, 2 Refill(s), Pharmacy: [facility] 50418, 1 caps Oral Daily,Instr:NOTE DOSE CHANGE Start Date: 12/11/14 Status: Orderedgabapentin 800 mg oral tablet See Instructions, TAKE 1 TABLET BY MOUTH FOUR TIMES DAILY, # 120 tabs, OZIEL, eRx : [facility] , TAKE 1 TABLET BY MOUTH FOUR TIMES DAILY Start Date: 07/15/15 Status: OrderedGlucometer (DME) DME Item TRUETRACK OR TRUERESULTS METER DX 250.00, See Instructions, # 1 Each, 0 Refill(s), Pharmacy: [facility] 55484, TRUETRACK OR TRUERESULTS METER DX 250.00, Supply Start Date: 02/09/14 Status: OrderedGlucometer Lancets (DME) DME Item dx 250.00 check once daily lancet device for TRUETRACK OR TRUE RESULTS , See Instructions, # 1 Each, 0 Refill(s), Pharmacy: [facility] [address] , dx 250.00 check once daily lancet device for TRUETRACK OR TRUE RESULTS, Supply Start Date: 02/09/14 Status: OrderedGlucometer strips (DME) DME Item truetest or trueresult meter test once daily dx 250.00, See Instructions, # 1 Each, 0 Refill(s), Pharmacy: [facility] [address], truetest or trueresult meter test once daily dx 250.00, Supply Start Date: 02/09/14 Status: Orderedlevofloxacin 250 mg oral tablet See Instructions, TAKE ONE TABLET BY MOUTH DAILY, # 30 tabs, 2 Refill(s), [facility], TAKE ONE TABLET BY MOUTH DAILY Start Date: 03/19/15 Status: OrderedmetFORMIN 500 mg oral tablet See Instructions, TAKE 1 TABLET BY MOUTH TWICE DAILY WITH MORNING AND EVENING MEALS, # 60 tabs, 5 Refill(s), eRx: [facility] [address], TAKE 1 TABLET BY MOUTH TWICE DAILY WITH MORNING AND EVENINGMEALS Start Date: 11/28/14 Status: Orderedmethadone 10 mg oral tablet 30 mg 3 tabs, Oral, QID, MUST LAST ONE MONTH, # 360 tabs, 0 Refill(s) Start Date: 08/05/15 Status: OrderedMS Contin 60 mg/12 hours oral tablet, extended release 60 mg 1 tabs, Oral, q12hr, # 60 tabs, 0 Refill(s) Start Date: 08/05/15 Status: OrderedMucinex DM 30 mg-600 mg oral [...] Instructions, 1 EACH INHALATION DAILY, # 30 unknown unit, eRx: [facility] [address], 1 EACH INHALATION DAILY Start Date: 07/15/15 Status: OrderedVentolin HFA 2 puffs, Inhalation, QID, [...] elbow release7 Tonsillectomy 1next scan [place] in [address]ysy next Nwm5qjg Next Zeo1fnr Next Gen.5see Next Gen6no diabetic njdntvyniqf5xqc Next Gen. Social History Social History Type Response Smoking Status Current every day smoker; Type: Cigarettes; Tobacco use per day : Less than Pack Assessment and Plan No data available for this section
--- OUTSIDE RECORDS SUMMARY | 2017-02-17 16:17 | External Medical Summary | Referral Summary ---
:1955 Author Organization [facility] [address] [place] [address] Care Team Providers Name Role Phone Pasha Pack Primary Care Physician Encounter VC Date(s): 02/28/15 - 02/28/15 [facility] [address] [place] [phone] [place] Discharge Diagnosis: [...] BID, # 180 Each, 1 Refill(s), Pharmacy: [facility] [address] Start Date: 12/27/14 Status: Orderedatorvastatin 10 mg oral tablet See Instructions, 1 TABS ORAL BEDTIME (ONCE A DAY), # 30 tabs, 5 Refill(s), Pharmacy: [facility] [address], 1 TABS ORAL BEDTIME (ONCE A DAY) Start Date: 10/26/14 Status: OrderedCalcium 600+D 1 tabs, Oral, BID, 0 Refill(s) Start Date: 12/28/13 Status: Orderedclobetasol 0.05% topical ointment See Instructions, APPLY A THIN LAYER TOPICALLY TO THE AFFECTED AREA TWICE DAILY , # 45 g, 2 Refill(s), OZIEL, eRx: [facility], APPLY A THIN LAYER TOPICALLY TO THE AFFECTED AREA TWICE DAILY Start Date: 03/20/14 Status: OrderedDULoxetine 60 mg oral delayed release capsule 60 mg 1 caps, Oral, Daily, NOTE DOSE CHANGE, # 90 caps, 2 Refill(s), Pharmacy: [facility], 1 caps Oral Daily,Instr:NOTE DOSE CHANGE Start Date: 12/11/14 Status: Orderedgabapentin 800 mg oral tablet See Instructions, TAKE 1 TABLET BY MOUTH FOUR TIMES DAILY, # 120 tabs, 4 Refill( s), OZIEL, eRx: [facility] [id number], TAKE 1 TABLET BY MOUTH FOUR TIMES DAILY Start Date: 12/27/14 Status: OrderedGlucometer (DME) DME Item TRUETRACK OR TRUERESULTS METER DX 250.00, See Instructions, # 1 Each, 0 Refill(s), Pharmacy: [facility] [address]105, TRUETRACK OR TRUERESULTS METER DX 250.00, Supply Start Date: 02/09/14 Status: OrderedGlucometer Lancets (DME) DME Item dx 250.00 check once daily lancet device for TRUETRACK OR TRUE RESULTS , See Instructions, # 1 Each, 0 Refill(s), Pharmacy: [facility] [address] , dx 250.00 check once daily lancet device for TRUETRACK OR TRUE RESULTS, Supply Start Date: 02/09/14 Status: OrderedGlucometer strips (DME) DME Item truetest or trueresult meter test once daily dx 250.00, See Instructions, # 1 Each, 0 Refill(s), Pharmacy: [facility], truetest or trueresult meter test once daily dx 250.00, Supply Start Date: 02/09/14 Status: Orderedlevofloxacin 250 mg oral tablet See Instructions, TAKE ONE TABLET BY MOUTH DAILY, # 30 tabs, 1 Refill(s), eRx: [facility] [id number], TAKE ONE TABLET BY MOUTH DAILY Start Date: 01/21/15 Status: OrderedmetFORMIN 500 mg oral tablet See Instructions, TAKE 1 TABLET BY MOUTH TWICE DAILY WITH MORNING AND EVENING MEALS, # 60 tabs, 5 Refill(s), eRx: [facility] [address], TAKE 1 TABLET BY MOUTH TWICE DAILY WITH MORNING AND EVENINGMEALS Start Date: 11/28/14 Status: Orderedmethadone 10 mg oral tablet 30 mg 3 tabs, Oral, QID, # 360 tabs, 0 Refill(s) Start Date: 02/05/15 Status: OrderedMS Contin 60 mg/12 hours oral tablet, extended release 60 mg 1 tabs, Oral, q12hr, # 60 tabs, 0 Refill(s) Start Date: 02/05/15 Status: OrderedMucinex DM 30 mg-600 mg oral [...] DAILY, # 30 Each, 5 Refill(s), Pharmacy: [facility] [address], 1 EACH INHALATION DAILY Start Date: 11/28/14 [...] elbow release7 Tonsillectomy 1next [place] due in [address]mpz next Mjc8jjv Next Svu2mhx Next Gen.5see Next Gen6no diabetic vxbrcffiojs4wqd Next Gen. Social History Social History Type Response Smoking Status Current every day smoker; Type: Cigarettes; Tobacco use per day : Less than Pack Assessment and Plan Extracted from: Title: Office Visit Note-O2 recert Author: Karen Garnica INSTRUCTIONAL DESIGN SPECIALIST Date: Assessment/Plan Chronic obstructive pulmonary disease Ezpa-ts-mgvr evaluation for oxygen therapy. Patient qualifies. Continue long-term. Encourage compliance with medications. Encourage smoking cessation. High-dose influenza vaccine given today. Pneumovax given today. Follow up in office as previously recommended. Ordered: Office Visit Level 3 Est [id number]
--- OUTSIDE RECORDS SUMMARY | 2017-02-17 16:17 | External Medical Summary | Referral Summary ---
:1955 Author Organization [facility] [address] [place] [id number] Care Team Providers Name Role Phone Javad Womack V Primary Care Physician Encounter VC Date(s): 01/22/15 - 01/22/15 [facility] [address] [place] [phone] [place] Discharge Diagnosis: Hypercholesterolemia Discharge Diagnosis: COPD Discharge Diagnosis: Diabetes Discharge Diagnosis: Back pain Discharge Disposition: 01-Home or Self Care Attending Physician: Pasha Pack MD Admitting Physician: Pasha Pack MD Vital Signs Most recent to oldest [Reference Range]: 1 Temperature Tympanic [36.6-38.1 degC] 35.6 degC *LOW* (01/22/15 10:25 AM) Peripheral Pulse Rate [60-100 bpm] 80 bpm (01/22/15 10:25 AM) Blood Pressure [90-140/60-90 mmHg] 116/80 mmHg (01/22/15 10:25 AM) SpO2 91 % (01/22/15 10:25 AM) Problem List Condition Effective Dates Status [...] BID, # 180 Each, 1 Refill(s), Pharmacy: [id number] Start Date: 12/27/14 Status: OrderedAdvair Diskus 500 mcg-50 mcg inhalation powder 1 puffs, Inhalation, BID, # 60 Each, 3 Refill(s), Pharmacy: [facility] Start Date: 04/30/15 Status: Orderedatorvastatin 10 mg oral tablet See Instructions, 1 TABS ORAL BEDTIME (ONCE A DAY), # 30 tabs, 1 Refill(s), eRx : [facility] [id number], 1 TABS ORAL BEDTIME (ONCE A DAY) Start Date: 07/01/15 Status: OrderedCalcium 600+D 1 tabs, Oral, BID, 0 Refill(s) Start Date: 12/28/13 Status: Orderedclobetasol 0.05% topical ointment See Instructions, APPLY A THIN LAYER TOPICALLY TO THE AFFECTED AREA TWICE DAILY , # 45 g, 2 Refill(s), OZIEL, eRx: [facility] [id number], APPLY A THIN LAYER TOPICALLY TO THE AFFECTED AREA TWICE DAILY Start Date: 03/20/14 Status: OrderedDULoxetine 60 mg oral delayed release capsule 60 mg 1 caps, Oral, Daily, NOTE DOSE CHANGE, # 90 caps, 2 Refill(s), Pharmacy: [facility] [id number], 1 caps Oral Daily,Instr:NOTE DOSE CHANGE Start Date: 12/11/14 Status: Orderedgabapentin 800 mg oral tablet See Instructions, TAKE 1 TABLET BY MOUTH FOUR TIMES DAILY, # 120 tabs, OZIEL, eRx : [facility] [id number], TAKE 1 TABLET BY MOUTH FOUR TIMES DAILY Start Date: 07/15/15 Status: OrderedGlucometer (DME) DME Item TRUETRACK OR TRUERESULTS METER DX 250.00, See Instructions, # 1 Each, 0 Refill(s), Pharmacy: [facility], TRUETRACK OR TRUERESULTS METER DX 250.00, Supply Start Date: 02/09/14 Status: OrderedGlucometer Lancets (DME) DME Item dx 250.00 check once daily lancet device for TRUETRACK OR TRUE RESULTS , See Instructions, # 1 Each, 0 Refill(s), Pharmacy: [facility] , dx 250.00 check once daily lancet device for TRUETRACK OR TRUE RESULTS, Supply Start Date: 02/09/14 Status: OrderedGlucometer strips (DME) DME Item truetest or trueresult meter test once daily dx 250.00, See Instructions, # 1 Each, 0 Refill(s), [facility], truetest or trueresult meter test once daily dx 250.00, Supply Start Date: 02/09/14 Status: Orderedlevofloxacin 250 mg oral tablet See Instructions, TAKE ONE TABLET BY MOUTH DAILY, # 30 tabs, 2 Refill(s), [facility], TAKE ONE TABLET BY MOUTH DAILY Start Date: 03/19/15 Status: OrderedmetFORMIN 500 mg oral tablet See Instructions, TAKE 1 TABLET BY MOUTH TWICE DAILY WITH MORNING AND EVENING MEALS, # 60 tabs, 5 Refill(s), [id number], TAKE 1 TABLET BY MOUTH TWICE DAILY WITH MORNING AND EVENINGMEALS Start Date: 11/28/14 Status: Orderedmethadone 10 mg oral tablet 30 mg 3 tabs, Oral, QID, MUST LAST ONE MONTH, # 360 tabs, 0 Refill(s) Start Date: 07/03/15 Status: OrderedMS Contin 60 mg/12 hours oral tablet, extended release 60 mg 1 tabs, Oral, q12hr, # 60 tabs, 0 Refill(s) Start Date: 07/03/15 Status: OrderedMucinex DM 30 mg-600 mg oral [...] INHALATION DAILY, # 30 unknown unit, eRx: [id number], 1 EACH INHALATION DAILY Start Date: 07/15/15 Status: OrderedVentolin HFA 2 puffs, Inhalation, QID, 0 Refill(s) Start Date: 12/28/13 Status: Ordered Results Chemistry Most recent to oldest [Reference Range]: 1 Sodium Lvl [135-144 mEq/L] 142 mEq/L (01/22/15 11:20 AM) Potassium Lvl [3.5-5.2 mEq/L] 4.5 mEq/L (01/22/15 11: AM) Chloride [99-111 mEq/L] 99 mEq/L (01/22/15 11: AM) CO2 [23-31 mEq/L] 33 mEq/L *HI* (01/22/15 11:20 AM) AGAP [3-20] 10 (01/22/15 11:20 AM) BUN [8-26 mg/dL] 11 mg/dL (01/22/15 11: AM) Glucose Lvl [70-99 mg/dL] 120 mg/dL *HI* (01/22/15 11:20 AM) Creatinine Lvl [0.72-1.25 mg/dL] 0.75 mg/dL (01/22/15 11:20 AM) eGFR [>60 mL/min] >60 mL/min 1 (01/22/15 11: AM) Calcium Lvl [8.9-10.5 mg/dL] 9.7 mg/dL (01/22/15 11:20 AM) Albumin Lvl [3.4-4.8 gm/dL] 4.1 gm/dL (01/22/15 1120 AM) Total Protein [6.2-8.1 gm/dL] 7.0 gm/dL (01/22/15 11 AM) Globulin [1.8-4.0 gm/dL] 2.9 gm/dL (01/22/15 11:20 AM) ALT [0-55 U/L] 11 U/L (01/22/15 11:20 AM) AST [5-34 U/L] 17 U/L (01/22/15 11:20 AM) Alk Phos [40-150 U/L] 85 U/L (01/22/15 11:20 AM) Bili Total [0.2-1.2 mg/dL] 0.4 mg/dL (01/22/15 11:20 AM) Hgb A1c [4.1-5.6 %] 6.0 % *HI* (01/22/15 11:20 AM) eAvg Glucose 125.5 mg/dL (01/22/15 11:20 AM) 1Result Comment: Multiply eGFR results by 1.21 for race. Immunizations Vaccine Date Refusal Reason influenza virus [...] elbow release7 Tonsillectomy 1next [place] in [id number] next Gns2cam Next Gql9jmv Next Gen.5see Next Gen6no diabetic [id number] Next Gen. Social History Social History Type Response Smoking Status Current every day smoker; Type: Cigarettes; Tobacco use per day : Less than Pack Assessment and Plan Extracted from: Title: Office Visit Note Author: Pasha Pack MD Date: 01/22/15 Assessment/Plan Back pain COPD Diabetes Ordered: Comprehensive Metabolic Panel Hemoglobin A1c Hypercholesterolemia Plan: Continue all current medications. I think your medical problems are stable. Follow-up in 3 months. We discussed the need to find a new primary care physician. I'm checking lab tests for your Diabetes. Call or follow-up sooner if you are Having any problems.
--- OUTSIDE RECORDS SUMMARY | 2017-02-17 16:18 | External Medical Summary | Referral Summary ---
:1955 Author Organization [facility], [address] [place] [address] Care Team Providers Name Role Phone Javad Womack V Primary Care Physician Encounter VC Date(s): 05/14/16 - 05/14/16 [facility] [address] [place] [phone] [place] Discharge Diagnosis: Hx of bacterial pneumonia Discharge Diagnosis: Chronic, continuous use of opioids Discharge Diagnosis: COPD, very severe Discharge Diagnosis: Polypharmacy Discharge Diagnosis: Neurodermatitis Discharge Diagnosis: Hypoxia Discharge Diagnosis: Encounter for chronic pain management Discharge Disposition: 01-Home or Self Care Attending Physician: Javad Womack MD Admitting Physician: Javad Womack MD Vital Signs Most recent to oldest [Reference Range]: 1 Temperature Tympanic [36.6-38.1 degC] 36.2 degC *LOW* (05/14/16 2:11 PM) Peripheral Pulse Rate [60-100 bpm] 87 bpm (05/14/16 2:11 PM) Blood Pressure [90-140/60-90 mmHg] 126/78 mmHg (05/14/16 2:11 PM) SpO2 95 % (05/14/16 2:11 PM) Problem List Condition Effective Dates Status [...] DAILY, # 60 g, 2 Refill(s), eRx: [facility] [id number], INHALE 1 PUFF TWICE DAILY Start Date: 04/04/16 Status: Orderedatorvastatin 10 mg oral tablet See Instructions, TAKE 1 TABLET BY MOUTH EVERY NIGHT AT BEDTIME, # 90 tabs, 1 Refill(s), Pharmacy: [facility] [id number], TAKE 1 TABLET BY MOUTH EVERY NIGHT AT BEDTIME Start Date: 03/04/16 Status: OrderedColace 100 mg oral capsule 100 mg 1 caps, Oral, BID, as needed for constipation, # 20 caps, 0 Refill(s) Start Date: 03/18/16 Status: OrderedDULoxetine 60 mg oral delayed release capsule 60 mg 1 caps, Oral, Daily, # 90 caps, 1 Refill(s), Pharmacy: [facility] [id number], 1 caps OralDaily Start Date: 05/12/16 Status: Orderedfamotidine 20 mg oral tablet 20 mg 1 tabs, Oral, BID, # 60 tabs, 3 Refill(s), Pharmacy: [facility] [id number], 1 tabs Oral BID Start Date: 05/12/16 Status: Orderedgabapentin 800 mg oral tablet See Instructions, TAKE 1 TABLET BY MOUTH FOUR TIMES DAILY, # 120 tabs, 3 Refill( s), OZIEL, Pharmacy: [facility] [id number], TAKE 1 TABLET BY MOUTH FOUR TIMES DAILY Start Date: 05/12/16 Status: Orderedipratropium-albuterol 0.5 mg-2.5 mg/3 mLinhalation solution See Instructions, USE 3 ML VIA NEBULIZER THREE TIMES DAILY AND EVERY 2 HOURS NEEDED, # 270 mL, 2 Refill(s), eRx: [id number], USE 3 ML VIA NEBULIZER THREE TIMES DAILY AND EVERY 2 HOURS NEEDED Start Date: 03/31/16 Status: Orderedmethadone 10 mg oral tablet See Instructions, 4 TABS QID, 0 Refill(s) Start Date: 05/14/16 Status: OrderedMiscellaneous DME DME Item NIPPV (PCV 15, rate 12, 6L O2) 99 months or [...] DAILY, # 30 caps, 2 Refill(s), eRx: [facility] [id number], INHALE THE CONTENTS OF 1 CAPSULE VIA [...] examination7 Neck surgery Right elbow release8 Tonsillectomy 3D00-H9 fusion, T12-L1 [id number] scan [place] in [id number] next Ifp5ela Next Bic6yos Next Gen.6see Next Gen7no diabetic [id number] Next Gen. Social History Social History Type Response Smoking Status Former smoker Assessment and Plan No data available for this section
--- NOTE | 2017-02-17 16:42 | XRay Report ---
Indication: copd resp distress PROCEDURE: XR chest 1V: Encounter: Initial Comparison: April 27, 2016 Findings: Hazy areas of bilateral airspace disease, left greater than right. Hyperinflation and evidence of emphysema. No gross pneumothorax. No pleural effusion. Cardiac silhouette remains moderately enlarged. Mediastinal contours are stable. Impression: COPD with possible superimposed pneumonia or edema in the left lung. .
[2017-02-17] MEDS: DOPamine PREMIX 400 MG/250 ML BAG IV PRN (16:48)
--- NOTE | 2017-02-17 17:19 | Emergency Department Report ---
Altered Mental Status HPI - General Chief Complaint: Altered Mental Status Stated Complaint: dec consciouness Time Seen by Provider: 02/17/17 15:00 Source: family Mode of arrival: wheelchair Limitations: altered mental status - History of Present Illness HPI narrative: Pt presents non verbal and unresponsive. Daughter reports pt has been steadily declining over the last year but over the last four days he has not been "talking much" so she took him to the clinic who sent them directly to the ER MD complaint: altered mental status, decreased responsiveness Onset (ago): day(s) Timing confirmed by: family member Severity: severe Context: history of similar presentation, COPD - Related Data Home Medications Medication Instructions Recorded Confirmed Gabapentin 800 mg PO QID #0 01/30/10 02/17/17 Atorvastatin Calcium [Lipitor] 10 mg PO HS #0 09/04/13 02/17/17 Tiotropium [place] [Spiriva] 1 cap ORAL INH HS #0 11/13/15 02/17/17 Duloxetine HCl 60 mg PO HS #0 12/19/15 02/17/17 Fluticasone/Salmeterol [Advair 1 puff INH BID #0 12/19/15 02/17/17 500-50 Diskus] Famotidine 20 mg PO BID #0 04/21/16 02/17/17 Morphine Sulfate [Morphine Sulfate 15 mg PO BID #0 04/21/16 02/17/17 ER] Multivitamin [Multi-Day Vitamins] 1 tab PO DAILY #0 04/21/16 02/17/17 Azithromycin [Azithromycin] 250 mg PO MOWEFR 02/17/17 02/17/17 Calcium Citrate/Vitamin D3 1 tab PO DAILY 02/17/17 02/17/17 [Calcium Citrate - Vit D Caplet] Metformin [Glucophage] 500 mg PO BIDWM 02/17/17 02/17/17 Methadone HCl 40 mg PO BID 02/17/17 02/17/17 Methadone HCl [Dolophine HCl] 30 mg PO BIDLS 02/17/17 02/17/17 Allergies Allergy/AdvReac Type Severity Reaction Status Date / Time diazepam AdvReac Unknown COMBATIVE Verified 02/17/17 15:21 Review of Systems Limitations: ROS unobtainable due to patient's medical condition FOR[facility]LY [facility], [facility] Surgical History: 1. T12-L1 laminectomy with T11-L3 fusion on 03/18/16, Dr. Hernandez. 2. Left ulnar nerve decompression 2011. 3. Bilateral total knee arthroplasties 2010. 4. Right wrist surgery 2007. 5. Closed treatment left fibular fracture 2007. 6. Anterior cervical discectomy and fusion 2006. 7. Bilateral carpal tunnel release 2005. 8. Tonsillectomy. 9. Right elbow release , date unknown. 10. Neck surgery not otherwise specified, date unknown - Social History Smoking status: Current every day smoker (began smoking at age 6. Reports he quit in 2016. However, currently uses a Vape) Physical Exam - Limitations Limitations: altered mental status - General General appearance: obtunded - Normal Exams: Cardiovascular:: Regular rate and rhythm, without murmur or gallop Abdomen:: Bowel sounds positive, soft, non-tender, non-distended Musculoskeletal:: No tenderness, or deformity noted Integumentary:: No rashes, hives - Head Head exam: atraumatic - Eye Eye exam: Present: PERRL - Respiratory Respiratory exam: Present: respiratory distress, wheezes, stridor, accessory muscle use, prolonged expiratory phase - Cardiovascular Cardiovascular exam: Present: tachycardia, JVD - Neurological Exam Neurological exam: Present: other (non verbal, does not follow commands) Course Vital Signs Temperature 99.4 F 02/17/17 14:55 Pulse Rate 105 H 02/17/17 14:55 Respiratory Rate 26 H 02/17/17 14:55 Blood Pressure 119/85 02/17/17 14:55 Pulse Oximetry 90 02/17/17 14:55 Temperature 99.4 F 02/17/17 14:55 Pulse Rate 83 02/17/17 16:45 Respiratory Rate 18 02/17/17 16:45 Blood Pressure 86/57 02/17/17 16:45 Pulse Oximetry 99 02/17/17 16:45 Altered Mental Status - [facility] Narrative Medical decision making narrative: Pt presents non verbal and unresponsive. Daughter states he has been this way for 3-4 days now. Pt is known to be on methadone and morphine but daughter states he has not had the morphine for several days and has taken all meds as prescribed. Daughter reports he is a full code. Lab and xray reviewed. Pt placed on bi pap 2/2 labored and bradypnec respirations pt able to maintain SpO2 above 90 once on bi pap. Pt given 500cc NS bolus to improve BP, bolus repeated after little response from the first. Hospitalist service notified of need for admission. Pt placed on Dopamine at 5mcg/kg/hr and later increased to 10mcg/kg/hr with mild improvement in BP. Pt transferred to ICU - Lab Data Attestation: I reviewed the patient's lab results. Result diagrams: 02/17/17 15:16 02/17/17 15:16 Lab Results 02/17/17 02/17/17 02/17/17 Range/Units 15:16 15:16 15:20 WBC 8.1 (4.5-11.0) T/MM3 RBC 4.59 (4.50-5.90) M/MM3 Hgb 11.9 L (13.5-17.5) GM/DL Hct 39.1 L (41-53) % MCV 85.2 (80-100) UM3 MCH 25.9 L (26-34) UUG MCHC 30.4 L (31-37) GM/DL RDW Std Deviation 52.3 H (36.9-50.2) FL Plt Count 227 (130-400) T/MM3 MPV 9.1 L (9.4-12.4) UM3 Immature Gran % (Auto) 0.2 (0.0-0.5) % Neut % (Auto) 79.9 H (33-66) % Lymph % (Auto) 11.1 L (23-45) % Brooke % (Auto) 7.2 (0-9.0) % Eos % (Auto) 1.4 (0-4) % Baso % (Auto) 0.2 (0-2) % Neut # (Auto) 6.5 (1.8-7.7) T/MM3 Lymph # (Auto) 0.9 L (1-4.8) T/MM3 Brooke # (Auto) 0.6 (0-0.8) T/MM3 Eos # (Auto) 0.1 (0-0.5) T/MM3 Baso # (Auto) 0.0 (0-0.2) T/MM3 Abs Immat Gran (auto) 0.02 (0.00-0.03) T/MM3 ABG pH (7.350-7.450) ABG pCO2 (34-45) MMHG ABG pO2 (80-100) MMHG ABG HCO3 (22-26) MEQ/L ABG Total CO2 (23-27) MEQ/L ABG O2 Saturation (95.0-98.0) % ABG Base Excess (-2.0-2.0) MMOL/L O2 Delivery Method FiO2 (liters per min) Turbidity < 20 (0-20) Sodium 141 (134-144) MEQ/L Potassium 3.8 (3.6-5) MEQ/L Chloride 98 (98-107) MEQ/L Carbon Dioxide 35 H (22-30) MEQ/L Anion Gap 8 (5-15) MEQ/L BUN 12.0 (9-20) MG/DL Creatinine 0.6 L (0.8-1.5) MG/DL GFR Calculation 136 BUN/Creatinine Ratio 20 (6-26) RATIO Glucose 141 H (75-110) MG/DL Calculated Osmolality 273 (261-280) MOSM/KG Calcium 8.2 L (8.4-10.2) MG/DL Total Bilirubin 1.00 (0.20-1.30) MG/DL Conjugated Bilirubin 0.00 (0.00-0.30) MG/DL Unconjugated Bilirubin 0.60 (0.00-1.1) MG/DL Icterus Index < 2 (0-7) AST 33 (17-59) U/L ALT 45 (21-72) U/L Alkaline Phosphatase 104 (38-126) U/L Total Protein 7.7 (6.3-8.2) G/DL Albumin 3.7 (3.5-5.0) G/DL Globulin 4.0 H (2.4-3.6) G/DL Albumin/Globulin Ratio 0.9 L (1.1-2.2) RATIO Plasma Lactate 0.9 (0.6-2.2) MMOL/L Specimen Hemolysis < 15 (0-25) Urine Opiates Screen Negative ng/mL Ur Oxycodone Screen Negative ng/mL Urine Methadone Screen Positive ng/mL Ur Propoxyphene Screen Negative ng/mL Ur Barbiturates Screen Negative ng/mL U Tricyclic Antidepress Negative ng/mL Ur Phencyclidine Scrn Negative ng/mL Ur Amphetamines Screen Negative ng/mL U Methamphetamines Scrn Negative ng/mL U Benzodiazepines Scrn Negative ng/mL Urine Cocaine Screen Negative ng/mL U Cannabinoids Screen Negative ng/mL 02/17/17 Range/Units 15:27 WBC (4.5-11.0) T/MM3 RBC (4.50-5.90) M/MM3 Hgb (13.5-17.5) GM/DL Hct (41-53) % MCV (80-100) UM3 MCH (26-34) UUG MCHC (31-37) GM/DL RDW Std Deviation (36.9-50.2) FL Plt Count (130-400) T/MM3 MPV (9.4-12.4) UM3 Immature Gran % (Auto) (0.0-0.5) % Neut % (Auto) (33-66) % Lymph % (Auto) (23-45) % Brooke % (Auto) (0-9.0) % Eos % (Auto) (0-4) % Baso % (Auto) (0-2) % Neut # (Auto) (1.8-7.7) T/MM3 Lymph # (Auto) (1-4.8) T/MM3 Brooke # (Auto) (0-0.8) T/MM3 Eos # (Auto) (0-0.5) T/MM3 Baso # (Auto) (0-0.2) T/MM3 Abs Immat Gran (auto) (0.00-0.03) T/MM3 ABG pH 7.360 (7.350-7.450) ABG pCO2 66 H* (34-45) MMHG ABG pO2 91 (80-100) MMHG ABG HCO3 37 H (22-26) MEQ/L ABG Total CO2 39.3 H (23-27) MEQ/L ABG O2 Saturation 97.0 (95.0-98.0) % ABG Base Excess 9.5 H (-2.0-2.0) MMOL/L O2 Delivery Method Nasal cannula, liter FiO2 (liters per min) 6 Turbidity (0-20) Sodium (134-144) MEQ/L Potassium (3.6-5) MEQ/L Chloride (98-107) MEQ/L Carbon Dioxide (22-30) MEQ/L Anion Gap (5-15) MEQ/L BUN (9-20) MG/DL Creatinine (0.8-1.5) MG/DL GFR Calculation BUN/Creatinine Ratio (6-26) RATIO Glucose (75-110) MG/DL Calculated Osmolality (261-280) MOSM/KG Calcium (8.4-10.2) MG/DL Total Bilirubin (0.20-1.30) MG/DL Conjugated Bilirubin (0.00-0.30) MG/DL Unconjugated Bilirubin (0.00-1.1) MG/DL Icterus Index (0-7) AST (17-59) U/L ALT (21-72) U/L Alkaline Phosphatase (38-126) U/L Total Protein (6.3-8.2) G/DL Albumin (3.5-5.0) G/DL Globulin (2.4-3.6) G/DL Albumin/Globulin Ratio (1.1-2.2) RATIO Plasma Lactate (0.6-2.2) MMOL/L Specimen Hemolysis (0-25) Urine Opiates Screen ng/mL Ur Oxycodone Screen ng/mL Urine Methadone Screen ng/mL Ur Propoxyphene Screen ng/mL Ur Barbiturates Screen ng/mL U Tricyclic Antidepress ng/mL Ur Phencyclidine Scrn ng/mL Ur Amphetamines Screen ng/mL U Methamphetamines Scrn ng/mL U Benzodiazepines Scrn ng/mL Urine Cocaine Screen ng/mL U Cannabinoids Screen ng/mL - Radiology Data Attestation: I reviewed the patient's radiology results. Disposition Clinical Impression: Altered mental status, Methadone dependence, Acute respiratory failure with hypoxia and hypercarbia, COPD (chronic obstructive pulmonary disease) Disposition: 02 To [facility] Acute Care Condition: Improved Time of Disposition: 17:45 - Seen By: midlevel
[2017-02-17] MEDS ORDERED: ONDANSETRON 4 MG/2 ML INJECTION IVP PRN (18:01)
[2017-02-17] MEDS ORDERED: ALBUTEROL/IPRATROPIUM 2.5mg-0.5mg/3ml NEB AEROSOL PRN (18:04)
[2017-02-17] MEDS: NS 1,000 ML IV SCH (18:45)
[2017-02-17] MEDS: BUDESONIDE INH.SOLN 0.5mg/2ml NEB AEROSOL SCH (19:24)
[2017-02-17] MEDS: ALBUTEROL/IPRATROPIUM 2.5mg-0.5mg/3ml NEB AEROSOL SCH ×2 (19:24→23:02)
[2017-02-17] MEDS: CEFTRIAXONE 1 G in NS 100 ML IV SCH (19:40)
[2017-02-17] MEDS: GABAPENTIN 800 MG TABLET PO SCH (21:29)
[2017-02-18] MEDS: DOPamine PREMIX 400 MG/250 ML BAG IV PRN ×2 (01:49→12:12)
[2017-02-18] MEDS: NS 1,000 ML IV SCH ×2 (02:35→16:43)
[2017-02-18] MEDS: BUDESONIDE INH.SOLN 0.5mg/2ml NEB AEROSOL SCH ×2 (06:59→19:13)
[2017-02-18] MEDS: ALBUTEROL/IPRATROPIUM 2.5mg-0.5mg/3ml NEB AEROSOL SCH ×4 (06:59→19:13)
[2017-02-18] MEDS: GABAPENTIN 800 MG TABLET PO SCH ×5 (08:32→22:04)
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
[2017-02-18] MEDS: INSULIN ASPART 100unit/ml INJECTION SQ PRN ×2 (10:39→14:54)
[2017-02-18] MEDS: ACETAMINOPHEN 325 MG TABLET PO PRN (17:58)
[2017-02-18] MEDS: CEFTRIAXONE 1 G in NS 100 ML IV SCH (17:58)
[2017-02-18] MEDS: METHADONE 10 MG TABLET PO SCH (22:04)
[2017-02-19] MEDS: DOPamine PREMIX 400 MG/250 ML BAG IV PRN (02:47)
[2017-02-19] MEDS: ALBUTEROL/IPRATROPIUM 2.5mg-0.5mg/3ml NEB AEROSOL SCH ×4 (06:47→19:21)
[2017-02-19] MEDS: BUDESONIDE INH.SOLN 0.5mg/2ml NEB AEROSOL SCH ×2 (06:47→19:21)
[2017-02-19] MEDS: NS 1,000 ML IV SCH ×3 (06:58→15:36)
[2017-02-19] MEDS ORDERED: INFLUENZA VAC QIV 2017-18 (Fluarix*)(>=3yo) 0.5ml IM ONE (08:04)
--- NOTE | 2017-02-19 08:46 | XRay Report ---
Indication: f/u PROCEDURE: XR chest 1V: Encounter: Initial Comparison: February 17, 2017 Findings: Motion artifact. Bilateral areas of airspace opacity are again seen with bronchial wall thickening and emphysema. No gross change from the comparison study. No obvious pneumothorax or pleural effusion. Heart size and mediastinal contours are stable. Impression: No change. .
[2017-02-19] MEDS: METHADONE 10 MG TABLET PO SCH ×3 (09:16→23:54)
[2017-02-19] MEDS: GABAPENTIN 800 MG TABLET PO SCH ×4 (09:16→23:55)
[2017-02-19] MEDS ORDERED: INFLUENZA VAC. INJ. ADMIN CHARGE INJ ONE (14:00)
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
[2017-02-19] MEDS: POLYETHYL GLYCOL 3350 17gm PACKET PO SCH (19:51)
[2017-02-19] MEDS: CEFTRIAXONE 1 G in NS 100 ML IV SCH (19:53)
[2017-02-19] MEDS: SENNA + DOCUSATE TABLET PO SCH (23:54)
[2017-02-19] MEDS: ATORVASTATIN 10 MG TABLET PO SCH (23:54)
[2017-02-19] MEDS: DULOXETINE 60 MG CAPSULE PO SCH (23:55)
[2017-02-20] MEDS: NS 1,000 ML IV SCH ×3 (02:47→18:19)
[2017-02-20] MEDS: BUDESONIDE INH.SOLN 0.5mg/2ml NEB AEROSOL SCH ×2 (07:55→20:36)
[2017-02-20] MEDS: ALBUTEROL/IPRATROPIUM 2.5mg-0.5mg/3ml NEB AEROSOL SCH ×4 (07:55→20:37)
[2017-02-20] MEDS: GABAPENTIN 800 MG TABLET PO SCH ×5 (08:49→23:10)
[2017-02-20] MEDS: SENNA + DOCUSATE TABLET PO SCH ×2 (08:49→23:11)
[2017-02-20] MEDS: MULTI-VITAMIN + MINERAL TABLET PO SCH (08:49)
[2017-02-20] MEDS: METHADONE 10 MG TABLET PO SCH ×7 (08:50→23:11)
[2017-02-20] MEDS: POLYETHYL GLYCOL 3350 17gm PACKET PO SCH (08:51)
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
[2017-02-20] MEDS: CEFTRIAXONE 1 G in NS 100 ML IV SCH (18:17)
[2017-02-20] MEDS: HALOPERIDOL 5 MG/ML INJECTION IVP PRN (20:05)
[2017-02-20] MEDS: SALINE FLUSH 10ml SYRINGE IVF PRN (20:06)
[2017-02-20] MEDS: DULOXETINE 60 MG CAPSULE PO SCH (23:10)
[2017-02-20] MEDS: ATORVASTATIN 10 MG TABLET PO SCH (23:10)
[2017-02-21] MEDS: HALOPERIDOL 5 MG/ML INJECTION IVP PRN ×3 (00:06→22:40)
[2017-02-21] MEDS: SALINE FLUSH 10ml SYRINGE IVF PRN ×3 (00:07→22:41)
[2017-02-21] MEDS: ALBUTEROL/IPRATROPIUM 2.5mg-0.5mg/3ml NEB AEROSOL SCH ×4 (08:23→19:31)
[2017-02-21] MEDS: BUDESONIDE INH.SOLN 0.5mg/2ml NEB AEROSOL SCH ×2 (08:24→19:31)
[2017-02-21] MEDS: SENNA + DOCUSATE TABLET PO SCH ×2 (09:11→23:28)
[2017-02-21] MEDS: METHADONE 10 MG TABLET PO SCH ×4 (09:11→23:27)
[2017-02-21] MEDS: MULTI-VITAMIN + MINERAL TABLET PO SCH (09:12)
[2017-02-21] MEDS: GABAPENTIN 800 MG TABLET PO SCH ×4 (09:12→23:27)
[2017-02-21] MEDS: POLYETHYL GLYCOL 3350 17gm PACKET PO SCH (09:14)
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
[2017-02-21] MEDS ORDERED: FUROSEMIDE 20 MG/2 ML INJECTION IVP ONE (13:03)
[2017-02-21] MEDS: MORPHINE SULFATE 2mg INJECTION IVP PRN (13:15)
[2017-02-21] MEDS: NS 1,000 ML IV SCH ×2 (16:08→20:14)
[2017-02-21] MEDS: CEFTRIAXONE 1 G in NS 100 ML IV SCH (17:39)
[2017-02-21] MEDS: DULOXETINE 60 MG CAPSULE PO SCH (23:27)
[2017-02-21] MEDS: TAMSULOSIN 0.4 MG CAPSULE PO SCH (23:28)
[2017-02-21] MEDS: ATORVASTATIN 10 MG TABLET PO SCH (23:28)
[2017-02-22] MEDS: HALOPERIDOL 5 MG/ML INJECTION IVP PRN (06:24)
[2017-02-22] MEDS: MORPHINE SULFATE 2mg INJECTION IVP PRN (06:40)
--- NOTE | 2017-02-22 07:46 | XRay Report ---
Indication: Chest congestion XR chest 1V: Comparison: 02/19/2017 Technique: AP portable semierect upright chest Findings: Since patient's recent previous study the in situ area for the shallower with slight increase in the amount of interstitial pulmonary prominence. Patient continues to show postoperative changes in the lower cervical region and in the lumbar spine. Impression: Interval increase in the amount of interstitial pulmonary prominence with follow-up after medical treatment suggested. .
[2017-02-22] MEDS: BUDESONIDE INH.SOLN 0.5mg/2ml NEB AEROSOL SCH ×2 (07:49→19:40)
[2017-02-22] MEDS: ALBUTEROL/IPRATROPIUM 2.5mg-0.5mg/3ml NEB AEROSOL SCH ×4 (07:49→19:40)
[2017-02-22] MEDS: GABAPENTIN 800 MG TABLET PO SCH ×4 (08:48→22:32)
[2017-02-22] MEDS: MULTI-VITAMIN + MINERAL TABLET PO SCH (08:48)
[2017-02-22] MEDS: SENNA + DOCUSATE TABLET PO SCH ×2 (08:48→22:33)
[2017-02-22] MEDS: POLYETHYL GLYCOL 3350 17gm PACKET PO SCH (08:48)
[2017-02-22] MEDS: METHADONE 10 MG TABLET PO SCH ×4 (08:58→22:33)
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
[2017-02-22] MEDS ORDERED: METHYLPREDNISOLONE SOD SUCC 125mg/2ml INJECTION IVP ONE (11:56)
[2017-02-22] MEDS ORDERED: FALL RISK - PHARMACY CONSULT XX ONE (17:13)
[2017-02-22] MEDS: METHYLPREDNISOLONE SOD SUCC 125mg/2ml INJECTION IVP SCH ×2 (17:59→22:33)
[2017-02-22] MEDS: CEFTRIAXONE 1 G in NS 100 ML IV SCH (18:00)
[2017-02-22] MEDS: INSULIN ASPART 100unit/ml INJECTION SQ PRN (20:06)
[2017-02-22] MEDS: ATORVASTATIN 10 MG TABLET PO SCH (22:32)
[2017-02-22] MEDS: TAMSULOSIN 0.4 MG CAPSULE PO SCH (22:32)
[2017-02-22] MEDS: DULOXETINE 60 MG CAPSULE PO SCH (22:32)
[2017-02-23] MEDS: INSULIN ASPART 100unit/ml INJECTION SQ PRN ×4 (05:19→21:52)
[2017-02-23] MEDS: SALINE FLUSH 10ml SYRINGE IVF PRN ×3 (05:20→21:22)
[2017-02-23] MEDS: METHYLPREDNISOLONE SOD SUCC 125mg/2ml INJECTION IVP SCH ×3 (05:20→16:44)
[2017-02-23] MEDS: ALBUTEROL/IPRATROPIUM 2.5mg-0.5mg/3ml NEB AEROSOL SCH ×4 (07:57→20:00)
[2017-02-23] MEDS: BUDESONIDE INH.SOLN 0.5mg/2ml NEB AEROSOL SCH ×2 (07:57→20:00)
--- NOTE | 2017-02-23 08:37 | XRay Report ---
INDICATION: F/U PROCEDURE: CHEST 2-VIEWS UPRIGHT (PA & LAT) Encounter: Initial COMPARISON: February 21, 2017 FINDINGS: Pulmonary edema has improved with a small amount remaining. No lobar consolidation. No pleural effusion or pneumothorax. Heart size and mediastinal contours are stable. Spinal fixation hardware. Emphysema. Impression: Improving pulmonary edema. .
[2017-02-23] MEDS: GABAPENTIN 800 MG TABLET PO SCH ×4 (08:41→21:23)
[2017-02-23] MEDS: POLYETHYL GLYCOL 3350 17gm PACKET PO SCH (08:41)
[2017-02-23] MEDS: METHADONE 10 MG TABLET PO SCH ×4 (08:41→21:23)
[2017-02-23] MEDS: SENNA + DOCUSATE TABLET PO SCH ×2 (08:41→21:23)
[2017-02-23] MEDS: MULTI-VITAMIN + MINERAL TABLET PO SCH (08:42)
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
--- NOTE | 2017-02-23 11:01 | CT Scan Report ---
Indication: encephalopathy PROCEDURE: CT head/brain wo con: Encounter: Initial Comparison: Head CT dated September 11, 2012 Technique: Axial CT images through the head were performed without contrast. Iterative Reconstruction dose reducing technique was utilized. FINDINGS: The ventricles are of normal size, shape, and contour for the patient's age. There are scattered areas of low attenuation in the white matter which most likely represent changes from chronic microvascular ischemia. The brainstem, cerebellum, and cerebral hemispheres otherwise have a normal morphology and CT attenuation. There is no evidence of midline displacement. No hemorrhage, signs of acute territorial stroke, mass effect, mass lesions, or edema is evident. The visualized portions of the skull base, midface, and calvarium demonstrate no abnormality. The paranasal sinuses are well aerated and free of significant disease. The tympanic and mastoid cavities appear normal. IMPRESSION: No acute intracranial abnormality or hemorrhage. .
[2017-02-23] MEDS: MIRTAZAPINE 15 MG TABLET PO SCH (21:23)
[2017-02-23] MEDS: TAMSULOSIN 0.4 MG CAPSULE PO SCH (21:23)
[2017-02-23] MEDS: ATORVASTATIN 10 MG TABLET PO SCH (21:24)
[2017-02-23] MEDS: DULOXETINE 60 MG CAPSULE PO SCH (21:24)
[2017-02-24] MEDS: METHYLPREDNISOLONE SOD SUCC 125mg/2ml INJECTION IVP SCH ×5 (00:07→23:33)
[2017-02-24] MEDS: SALINE FLUSH 10ml SYRINGE IVF PRN ×3 (05:05→21:09)
[2017-02-24] MEDS: INSULIN ASPART 100unit/ml INJECTION SQ PRN ×4 (06:32→21:11)
[2017-02-24] MEDS: ALBUTEROL/IPRATROPIUM 2.5mg-0.5mg/3ml NEB AEROSOL SCH ×4 (07:31→20:41)
[2017-02-24] MEDS: BUDESONIDE INH.SOLN 0.5mg/2ml NEB AEROSOL SCH ×2 (07:31→20:41)
[2017-02-24] MEDS: GABAPENTIN 800 MG TABLET PO SCH ×4 (09:17→21:07)
[2017-02-24] MEDS: METHADONE 10 MG TABLET PO SCH ×4 (09:17→21:06)
[2017-02-24] MEDS: SENNA + DOCUSATE TABLET PO SCH ×2 (09:17→21:07)
[2017-02-24] MEDS: POLYETHYL GLYCOL 3350 17gm PACKET PO SCH (09:18)
[2017-02-24] MEDS: MULTI-VITAMIN + MINERAL TABLET PO SCH (09:18)
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
[2017-02-24] MEDS: ATORVASTATIN 10 MG TABLET PO SCH (21:07)
[2017-02-24] MEDS: MIRTAZAPINE 15 MG TABLET PO SCH (21:07)
[2017-02-24] MEDS: DULOXETINE 60 MG CAPSULE PO SCH (21:07)
[2017-02-24] MEDS: TAMSULOSIN 0.4 MG CAPSULE PO SCH (21:12)
[2017-02-25] MEDS: SALINE FLUSH 10ml SYRINGE IVF PRN ×2 (05:45→12:11)
[2017-02-25] MEDS: METHYLPREDNISOLONE SOD SUCC 125mg/2ml INJECTION IVP SCH ×2 (05:46→12:09)
[2017-02-25] MEDS: INSULIN ASPART 100unit/ml INJECTION SQ PRN ×4 (05:52→22:18)
[2017-02-25] MEDS: ALBUTEROL/IPRATROPIUM 2.5mg-0.5mg/3ml NEB AEROSOL SCH ×4 (08:23→19:18)
[2017-02-25] MEDS: BUDESONIDE INH.SOLN 0.5mg/2ml NEB AEROSOL SCH ×2 (08:23→19:18)
[2017-02-25] MEDS: METHADONE 10 MG TABLET PO SCH ×4 (09:06→22:10)
[2017-02-25] MEDS: SENNA + DOCUSATE TABLET PO SCH ×2 (09:07→22:11)
[2017-02-25] MEDS: MULTI-VITAMIN + MINERAL TABLET PO SCH (09:07)
[2017-02-25] MEDS: POLYETHYL GLYCOL 3350 17gm PACKET PO SCH (09:07)
[2017-02-25] MEDS: GABAPENTIN 800 MG TABLET PO SCH ×4 (09:10→22:11)
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
[2017-02-25] MEDS: ATORVASTATIN 10 MG TABLET PO SCH (22:10)
[2017-02-25] MEDS: TAMSULOSIN 0.4 MG CAPSULE PO SCH (22:11)
[2017-02-25] MEDS: MIRTAZAPINE 15 MG TABLET PO SCH (22:11)
[2017-02-25] MEDS: DULOXETINE 60 MG CAPSULE PO SCH (22:11)
[2017-02-26] MEDS: ALBUTEROL/IPRATROPIUM 2.5mg-0.5mg/3ml NEB AEROSOL SCH ×4 (08:31→21:25)
[2017-02-26] MEDS: BUDESONIDE INH.SOLN 0.5mg/2ml NEB AEROSOL SCH ×2 (08:32→21:25)
[2017-02-26] MEDS: POLYETHYL GLYCOL 3350 17gm PACKET PO SCH (09:12)
[2017-02-26] MEDS: METHADONE 10 MG TABLET PO SCH ×4 (09:13→20:36)
[2017-02-26] MEDS: PredniSONE 20 MG TABLET PO SCH (09:13)
[2017-02-26] MEDS: SENNA + DOCUSATE TABLET PO SCH ×2 (09:14→20:35)
[2017-02-26] MEDS: GABAPENTIN 800 MG TABLET PO SCH ×4 (09:14→20:35)
[2017-02-26] MEDS: MULTI-VITAMIN + MINERAL TABLET PO SCH (09:15)
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
[2017-02-26] MEDS: INSULIN ASPART 100unit/ml INJECTION SQ PRN ×2 (17:06→20:37)
[2017-02-26] MEDS: TAMSULOSIN 0.4 MG CAPSULE PO SCH (20:35)
[2017-02-26] MEDS: DULOXETINE 60 MG CAPSULE PO SCH (20:35)
[2017-02-26] MEDS: MIRTAZAPINE 15 MG TABLET PO SCH (20:35)
[2017-02-26] MEDS: ATORVASTATIN 10 MG TABLET PO SCH (20:35)
[2017-02-27] MEDS: BUDESONIDE INH.SOLN 0.5mg/2ml NEB AEROSOL SCH ×2 (07:28→19:34)
[2017-02-27] MEDS: ALBUTEROL/IPRATROPIUM 2.5mg-0.5mg/3ml NEB AEROSOL SCH ×4 (07:28→19:34)
[2017-02-27] MEDS: MULTI-VITAMIN + MINERAL TABLET PO SCH (09:53)
[2017-02-27] MEDS: PredniSONE 20 MG TABLET PO SCH (09:53)
[2017-02-27] MEDS: SENNA + DOCUSATE TABLET PO SCH ×2 (09:53→20:49)
[2017-02-27] MEDS: METHADONE 10 MG TABLET PO SCH ×4 (09:53→20:49)
[2017-02-27] MEDS: GABAPENTIN 800 MG TABLET PO SCH ×4 (09:53→20:50)
[2017-02-27] MEDS: POLYETHYL GLYCOL 3350 17gm PACKET PO SCH (09:54)
[2017-02-27] MEDS: INSULIN ASPART 100unit/ml INJECTION SQ PRN ×2 (14:08→21:25)
[2017-02-27] MEDS: SALINE FLUSH 10ml SYRINGE IVF PRN (14:49)
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
[2017-02-27] MEDS ORDERED: NALOXONE 2 MG/2 ML INJECTION PFS IVP PRN (18:20)
[2017-02-27] MEDS ORDERED: FLUMAZENIL 0.5mg/5ml INJECTION IVP ONE (18:23)
[2017-02-27] MEDS: TAMSULOSIN 0.4 MG CAPSULE PO SCH (20:49)
[2017-02-27] MEDS: MIRTAZAPINE 15 MG TABLET PO SCH (20:49)
[2017-02-27] MEDS: DULOXETINE 60 MG CAPSULE PO SCH (20:50)
[2017-02-27] MEDS: ATORVASTATIN 10 MG TABLET PO SCH (20:50)
[2017-02-27] MEDS: HALOPERIDOL 5 MG/ML INJECTION IM PRN (21:00)
[2017-02-28] MEDS: ACETAMINOPHEN 325 MG TABLET PO PRN ×2 (01:55→16:27)
[2017-02-28] MEDS: BUDESONIDE INH.SOLN 0.5mg/2ml NEB AEROSOL SCH ×2 (07:21→18:40)
[2017-02-28] MEDS: ALBUTEROL/IPRATROPIUM 2.5mg-0.5mg/3ml NEB AEROSOL SCH ×4 (07:21→18:40)
[2017-02-28] MEDS: METHADONE 10 MG TABLET PO SCH ×4 (08:31→20:00)
[2017-02-28] MEDS: MULTI-VITAMIN + MINERAL TABLET PO SCH (08:32)
[2017-02-28] MEDS: SENNA + DOCUSATE TABLET PO SCH ×2 (08:32→20:01)
[2017-02-28] MEDS: PredniSONE 20 MG TABLET PO SCH (08:32)
[2017-02-28] MEDS: GABAPENTIN 800 MG TABLET PO SCH ×4 (08:32→20:01)
[2017-02-28] MEDS: POLYETHYL GLYCOL 3350 17gm PACKET PO SCH (08:32)
[2017-02-28] MEDS: INSULIN ASPART 100unit/ml INJECTION SQ PRN ×3 (10:26→19:59)
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
[2017-02-28] MEDS: DULOXETINE 60 MG CAPSULE PO SCH (20:00)
[2017-02-28] MEDS: HALOPERIDOL 5 MG/ML INJECTION IM PRN (20:00)
[2017-02-28] MEDS: TAMSULOSIN 0.4 MG CAPSULE PO SCH (20:00)
[2017-02-28] MEDS: ATORVASTATIN 10 MG TABLET PO SCH (20:01)
[2017-02-28] MEDS: MIRTAZAPINE 15 MG TABLET PO SCH (20:01)
[2017-03-01] MEDS: ALBUTEROL/IPRATROPIUM 2.5mg-0.5mg/3ml NEB AEROSOL SCH ×4 (07:01→19:14)
[2017-03-01] MEDS: BUDESONIDE INH.SOLN 0.5mg/2ml NEB AEROSOL SCH ×2 (07:01→19:14)
[2017-03-01] MEDS: NS 1,000 ML IV SCH (07:44)
[2017-03-01] MEDS: MULTI-VITAMIN + MINERAL TABLET PO SCH (08:27)
[2017-03-01] MEDS: POLYETHYL GLYCOL 3350 17gm PACKET PO SCH (08:27)
[2017-03-01] MEDS: METHADONE 10 MG TABLET PO SCH ×4 (08:27→21:52)
[2017-03-01] MEDS: GABAPENTIN 800 MG TABLET PO SCH ×4 (08:27→21:52)
[2017-03-01] MEDS: SENNA + DOCUSATE TABLET PO SCH ×2 (08:27→21:52)
[2017-03-01] MEDS: PredniSONE 20 MG TABLET PO SCH (08:27)
[2017-03-01] MEDS: HALOPERIDOL 5 MG/ML INJECTION IM PRN (13:07)
[2017-03-01] MEDS: INSULIN ASPART 100unit/ml INJECTION SQ PRN ×2 (14:06→21:54)
[2017-03-01] MEDS: ACETAMINOPHEN 325 MG TABLET PO PRN (14:34)
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
[2017-03-01] MEDS: NICOTINE 14 MG PATCH TD SCH (17:06)
[2017-03-01] MEDS: TAMSULOSIN 0.4 MG CAPSULE PO SCH (21:51)
[2017-03-01] MEDS: DULOXETINE 60 MG CAPSULE PO SCH (21:52)
[2017-03-01] MEDS: MIRTAZAPINE 15 MG TABLET PO SCH (21:52)
[2017-03-01] MEDS: ATORVASTATIN 10 MG TABLET PO SCH (21:52)
[2017-03-02] MEDS: BUDESONIDE INH.SOLN 0.5mg/2ml NEB AEROSOL SCH ×2 (07:45→20:28)
[2017-03-02] MEDS: ALBUTEROL/IPRATROPIUM 2.5mg-0.5mg/3ml NEB AEROSOL SCH ×4 (07:45→20:28)
[2017-03-02] MEDS: SENNA + DOCUSATE TABLET PO SCH ×2 (08:51→20:48)
[2017-03-02] MEDS: MULTI-VITAMIN + MINERAL TABLET PO SCH (08:52)
[2017-03-02] MEDS: GABAPENTIN 800 MG TABLET PO SCH ×4 (08:52→20:49)
[2017-03-02] MEDS: POLYETHYL GLYCOL 3350 17gm PACKET PO SCH (08:52)
[2017-03-02] MEDS: METHADONE 10 MG TABLET PO SCH ×4 (08:52→20:49)
[2017-03-02] MEDS: PredniSONE 20 MG TABLET PO SCH (08:52)
[2017-03-02] MEDS: NICOTINE PATCH REMOVAL TD SCH (08:53)
[2017-03-02] MEDS: NICOTINE 14 MG PATCH TD SCH (08:53)
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
[2017-03-02] MEDS ORDERED: INSULIN ASPART 100unit/ml INJECTION SQ ONE (14:42)
[2017-03-02] MEDS: DULOXETINE 60 MG CAPSULE PO SCH (20:49)
[2017-03-02] MEDS: MIRTAZAPINE 15 MG TABLET PO SCH (20:49)
[2017-03-02] MEDS: TAMSULOSIN 0.4 MG CAPSULE PO SCH (20:49)
[2017-03-02] MEDS: ATORVASTATIN 10 MG TABLET PO SCH (20:50)
[2017-03-02] MEDS: HALOPERIDOL 5 MG/ML INJECTION IM PRN (20:51)
[2017-03-03] MEDS ORDERED: PredniSONE 20 MG TABLET PO SCH (08:00)
[2017-03-03] MEDS ORDERED: ALBUTEROL/IPRATROPIUM 2.5mg-0.5mg/3ml NEB AEROSOL PRN (08:26)
[2017-03-03] MEDS: ALBUTEROL/IPRATROPIUM 2.5mg-0.5mg/3ml NEB AEROSOL SCH ×4 (08:31→19:21)
[2017-03-03] MEDS: BUDESONIDE INH.SOLN 0.5mg/2ml NEB AEROSOL SCH ×2 (08:31→19:21)
[2017-03-03] MEDS: SENNA + DOCUSATE TABLET PO SCH ×2 (09:13→20:46)
[2017-03-03] MEDS: METHADONE 10 MG TABLET PO SCH ×4 (09:13→20:45)
[2017-03-03] MEDS: GABAPENTIN 800 MG TABLET PO SCH ×4 (09:13→20:46)
[2017-03-03] MEDS: MULTI-VITAMIN + MINERAL TABLET PO SCH (09:13)
[2017-03-03] MEDS: POLYETHYL GLYCOL 3350 17gm PACKET PO SCH (09:14)
[2017-03-03] MEDS: NICOTINE 14 MG PATCH TD SCH (09:37)
[2017-03-03] MEDS: NICOTINE PATCH REMOVAL TD SCH (09:37)
--- NOTE | 2017-03-03 12:27 | XRay Report ---
EXAM: XR chest 2V COMPARISON: 02/23/2017. 02/21/2017. 01/30/2010. HISTORY: F/U . Encephalopathy. Passed out at doctor's office several weeks ago. FINDINGS: The heart is enlarged. The pulmonary vascularity appears unremarkable. The lungs are hyperinflated with flattening of the diaphragms and increased AP diameter which could be related to chronic emphysematous changes. Chronic interstitial changes are noted. There is no evidence for pleural effusion. There is no evidence for a pneumothorax. Posterior spinal fixation rods and pedicle screws are seen of the lower thoracic spine and extending inferiorly to the lumbar spine. Endplate sclerosis and spurring is seen of the thoracic spine. Right lateral rib deformities are noted with adjacent pleural thickening. IMPRESSION: 1. Chronic emphysematous changes. 2. Chronic interstitial markings. 3. Continued improvement in the previously seen congestive changes. 4. Right lateral rib deformities again noted. LOCATION OF DICTATION: [facility] [place] .
[2017-03-03] MEDS ORDERED: INSULIN ASPART 100unit/ml INJECTION SQ ONE (15:15)
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
[2017-03-03] MEDS: INSULIN ASPART 100unit/ml INJECTION SQ PRN (20:14)
[2017-03-03] MEDS: MIRTAZAPINE 15 MG TABLET PO SCH (20:45)
[2017-03-03] MEDS: TAMSULOSIN 0.4 MG CAPSULE PO SCH (20:45)
[2017-03-03] MEDS: ATORVASTATIN 10 MG TABLET PO SCH (20:45)
[2017-03-03] MEDS: DULOXETINE 60 MG CAPSULE PO SCH (20:46)
[2017-03-03] MEDS: QUETIAPINE 25 MG TABLET PO SCH (20:46)
[2017-03-03] MEDS: HALOPERIDOL 5 MG/ML INJECTION IM PRN (21:36)
[2017-03-04] MEDS: ALBUTEROL/IPRATROPIUM 2.5mg-0.5mg/3ml NEB AEROSOL SCH ×4 (08:16→19:00)
[2017-03-04] MEDS: BUDESONIDE INH.SOLN 0.5mg/2ml NEB AEROSOL SCH ×2 (08:16→19:00)
[2017-03-04] MEDS: GABAPENTIN 800 MG TABLET PO SCH ×4 (08:45→20:11)
[2017-03-04] MEDS: PredniSONE 20 MG TABLET PO SCH (08:45)
[2017-03-04] MEDS: SENNA + DOCUSATE TABLET PO SCH ×2 (08:46→20:10)
[2017-03-04] MEDS: MULTI-VITAMIN + MINERAL TABLET PO SCH (08:46)
[2017-03-04] MEDS: METHADONE 10 MG TABLET PO SCH ×4 (08:46→20:11)
[2017-03-04] MEDS: POLYETHYL GLYCOL 3350 17gm PACKET PO SCH (08:47)
[2017-03-04] MEDS: NICOTINE PATCH REMOVAL TD SCH (08:47)
[2017-03-04] MEDS: NICOTINE 14 MG PATCH TD SCH (08:47)
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
[2017-03-04] MEDS: INSULIN ASPART 100unit/ml INJECTION SQ PRN ×2 (11:25→14:54)
[2017-03-04] MEDS: TAMSULOSIN 0.4 MG CAPSULE PO SCH (20:10)
[2017-03-04] MEDS: MIRTAZAPINE 15 MG TABLET PO SCH (20:10)
[2017-03-04] MEDS: HALOPERIDOL 5 MG/ML INJECTION IM PRN (20:10)
[2017-03-04] MEDS: DULOXETINE 60 MG CAPSULE PO SCH (20:11)
[2017-03-04] MEDS: QUETIAPINE 25 MG TABLET PO SCH (20:11)
[2017-03-04] MEDS: ATORVASTATIN 10 MG TABLET PO SCH (20:11)
[2017-03-04] MEDS ORDERED: FALL RISK - PHARMACY CONSULT MC ONE (22:53)
[2017-03-05] MEDS: INSULIN ASPART 100unit/ml INJECTION SQ PRN ×2 (00:43→15:17)
[2017-03-05] MEDS: ALBUTEROL/IPRATROPIUM 2.5mg-0.5mg/3ml NEB AEROSOL SCH ×4 (08:22→21:49)
[2017-03-05] MEDS: BUDESONIDE INH.SOLN 0.5mg/2ml NEB AEROSOL SCH ×2 (08:22→21:49)
[2017-03-05] MEDS: GABAPENTIN 800 MG TABLET PO SCH ×4 (09:32→20:12)
[2017-03-05] MEDS: PredniSONE 20 MG TABLET PO SCH (09:32)
[2017-03-05] MEDS: METHADONE 10 MG TABLET PO SCH ×4 (09:32→20:12)
[2017-03-05] MEDS: MULTI-VITAMIN + MINERAL TABLET PO SCH (09:33)
[2017-03-05] MEDS: NICOTINE 14 MG PATCH TD SCH (09:33)
[2017-03-05] MEDS: SENNA + DOCUSATE TABLET PO SCH ×2 (09:34→20:13)
[2017-03-05] MEDS: POLYETHYL GLYCOL 3350 17gm PACKET PO SCH (09:34)
[2017-03-05] MEDS: NICOTINE PATCH REMOVAL TD SCH (09:34)
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
--- NOTE | 2017-03-05 18:57 | 24 Hour Neuropsychiatic Eval ---
Date of Admission: 02/18/17 10:15 Chief complaint: "I want out of here" History of Present Illness: HPI: 61 Y/O CM who was initially admitted for COPD exacerbation and acute delirium. Pt reportedly had some agitation and confusion at night but nursing reports this has resolved. Pt had been receiving Haldol each night recently and so psychiatry was consulted. On face to face the pt states he is doing fairly well. He scored well on the SLUMS exam and is alert and oriented x 4. He does report some depression but feels it is tied to his current situation. He denies any S/I. STRESSORS: Pt states he does not like living with his daughter and would like to live on his own but his family feels he can not live independently. PSYCH ROS: Pt does report some depression but feels it is mild and primarily situational. He denies any feelings of hopelessness and denies S/I. He reports some anxiety at times but relates it to his physical health and some issues with breathing. He denies yamilex or psychosis. PAST PSYCH: Pt is currently on Cymbalta and Remeron. He is also receiving Seroquel at . He denies ever trying to harm himself and has never seen a psychiatrist. [facility] Surgical History: 1. T12-L1 laminectomy with T11-L3 fusion on 03/18/16, Dr. Hernandez. 2. Left ulnar nerve decompression 2011. 3. Bilateral total knee arthroplasties 2010. 4. Right wrist surgery 2007. 5. Closed treatment left fibular fracture 2007. 6. Anterior cervical discectomy and fusion 2006. 7. Bilateral carpal tunnel release 2005. 8. Tonsillectomy. 9. Right elbow release , date unknown. 10. Neck surgery not otherwise specified, date unknown - Social History Current residence: Apartment/Private Home Review of Systems - Psychiatric Psychiatric: Present: anxiety, depression Mental Status Exam Vitals: Last Vital Signs Temp 96.3 F L 03/05/17 15:10 Pulse 87 03/05/17 16:00 Resp 24 03/05/17 17:07 BP 116/74 03/05/17 15:10 Pulse Ox 95 03/05/17 17:19 Height: 1.75 m Weight: 67 kg - Mental Status Exam Muscle Strength/Tone: Normal Dressing: Casual Grooming: Fair Attitude: Cooperative Motor Activity: Retardation Eye Contact: Fair Speech: Slowed Volume: Soft Rhythm: Appropriate Rhythm Orientation: Oriented X4 Mood: Depressed Affect: Sad Rate of Thoughts: Delayed Thought Organization: Organized Associations: Intact Abstract Reasoning: Intact, able to abstract Thought Content: Normal Perception/Psychotic: Perception Normal Language: Naming Intact Fund of Knowledge: Appropriate Memory: Grossly Intact Homicidal Ideation: None Insight: Limited Judgement: Limited Impulse Control: Good - Laboratory Result Diagrams: 03/02/17 04:27 03/03/17 04:24 Laboratory Results - last 24 hr 03/04/17 03/05/17 03/05/17 20:30 05:54 10:52 Glucometer 187 86 126 03/05/17 15:03 Glucometer 268 Assessment and Plan (1) Major depressive disorder with current active episode Qualifiers: Major depression recurrence: recurrent Major depression episode severity: moderate Qualified Code(s): F33.1 - Major depressive disorder, recurrent, moderate Current visit: Yes Status: Acute Continue medical management. Will increase Remeron to 15mg at HS to target sleep and appetite. Would consider switching Cymbalta to AM as the norepinephrine component could be activating and keep the patient awake but it is a good choice for antidepressants considering his chronic pain. Encourage nurses to use Haldol only for acute confusion and will decrease the dose to 1mg. Will start Haldol 1mg PO or IM Q6PRN agitation and will D/C Seroquel due to concern anticholinergic properties of Seroquel could make confusion worse. Would recommend Ativan 0.5mg be used PRN if pt has anxiety due to SOA. (2) Delirium due to another medical condition Problem details: Resolving Current visit: Yes Status: Acute
[2017-03-05] MEDS: DULOXETINE 60 MG CAPSULE PO SCH (20:12)
[2017-03-05] MEDS: TAMSULOSIN 0.4 MG CAPSULE PO SCH (20:12)
[2017-03-05] MEDS: ATORVASTATIN 10 MG TABLET PO SCH (20:13)
[2017-03-05] MEDS: HALOPERIDOL 1 MG TABLET PO PRN (20:13)
[2017-03-05] MEDS: MIRTAZAPINE 15 MG TABLET PO SCH (20:13)
[2017-03-06] MEDS: BUDESONIDE INH.SOLN 0.5mg/2ml NEB AEROSOL SCH ×2 (07:33→19:22)
[2017-03-06] MEDS: ALBUTEROL/IPRATROPIUM 2.5mg-0.5mg/3ml NEB AEROSOL SCH ×4 (07:33→19:23)
[2017-03-06] MEDS: GABAPENTIN 800 MG TABLET PO SCH ×4 (09:17→20:25)
[2017-03-06] MEDS: MULTI-VITAMIN + MINERAL TABLET PO SCH (09:17)
[2017-03-06] MEDS: METHADONE 10 MG TABLET PO SCH ×4 (09:17→20:26)
[2017-03-06] MEDS: POLYETHYL GLYCOL 3350 17gm PACKET PO SCH (09:17)
[2017-03-06] MEDS: PredniSONE 20 MG TABLET PO SCH (09:18)
[2017-03-06] MEDS: NICOTINE 14 MG PATCH TD SCH (09:18)
[2017-03-06] MEDS: SENNA + DOCUSATE TABLET PO SCH ×2 (09:18→20:26)
[2017-03-06] MEDS: NICOTINE PATCH REMOVAL TD SCH (09:18)
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
[2017-03-06] MEDS: HALOPERIDOL 1 MG TABLET PO PRN ×2 (12:28→20:26)
[2017-03-06] MEDS: INSULIN ASPART 100unit/ml INJECTION SQ PRN (18:46)
[2017-03-06] MEDS: ATORVASTATIN 10 MG TABLET PO SCH (20:25)
[2017-03-06] MEDS: LORazepam 0.5 MG TABLET PO PRN (20:25)
[2017-03-06] MEDS: MIRTAZAPINE 15 MG TABLET PO SCH (20:25)
[2017-03-06] MEDS: DULOXETINE 60 MG CAPSULE PO SCH (20:25)
[2017-03-06] MEDS: TAMSULOSIN 0.4 MG CAPSULE PO SCH (20:26)
[2017-03-07] MEDS: ALBUTEROL/IPRATROPIUM 2.5mg-0.5mg/3ml NEB AEROSOL SCH ×4 (07:54→15:45)
[2017-03-07] MEDS: BUDESONIDE INH.SOLN 0.5mg/2ml NEB AEROSOL SCH ×2 (07:55→19:08)
[2017-03-07] MEDS: MULTI-VITAMIN + MINERAL TABLET PO SCH (08:27)
[2017-03-07] MEDS: POLYETHYL GLYCOL 3350 17gm PACKET PO SCH (08:27)
[2017-03-07] MEDS: PredniSONE 20 MG TABLET PO SCH (08:27)
[2017-03-07] MEDS: GABAPENTIN 800 MG TABLET PO SCH ×4 (08:28→20:16)
[2017-03-07] MEDS: METHADONE 10 MG TABLET PO SCH ×4 (08:28→20:17)
[2017-03-07] MEDS: NICOTINE 14 MG PATCH TD SCH (08:28)
[2017-03-07] MEDS: NICOTINE PATCH REMOVAL TD SCH (08:29)
[2017-03-07] MEDS: SENNA + DOCUSATE TABLET PO SCH ×2 (08:29→20:16)
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
[2017-03-07] MEDS: INSULIN ASPART 100unit/ml INJECTION SQ PRN (14:11)
[2017-03-07] MEDS: LORazepam 0.5 MG TABLET PO PRN (20:16)
[2017-03-07] MEDS: DULOXETINE 60 MG CAPSULE PO SCH (20:16)
[2017-03-07] MEDS: TAMSULOSIN 0.4 MG CAPSULE PO SCH (20:16)
[2017-03-07] MEDS: MIRTAZAPINE 15 MG TABLET PO SCH (20:16)
[2017-03-07] MEDS: ATORVASTATIN 10 MG TABLET PO SCH (20:18)
[2017-03-08] MEDS: HALOPERIDOL 1 MG TABLET PO PRN ×2 (02:28→20:05)
[2017-03-08] MEDS: BUDESONIDE INH.SOLN 0.5mg/2ml NEB AEROSOL SCH ×2 (06:34→21:05)
[2017-03-08] MEDS: ALBUTEROL/IPRATROPIUM 2.5mg-0.5mg/3ml NEB AEROSOL SCH ×4 (06:34→21:05)
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
[2017-03-08] MEDS: GABAPENTIN 800 MG TABLET PO SCH ×4 (08:42→20:04)
[2017-03-08] MEDS: SENNA + DOCUSATE TABLET PO SCH ×2 (08:42→20:04)
[2017-03-08] MEDS: METHADONE 10 MG TABLET PO SCH ×4 (08:42→20:03)
[2017-03-08] MEDS: POLYETHYL GLYCOL 3350 17gm PACKET PO SCH (08:42)
[2017-03-08] MEDS: MULTI-VITAMIN + MINERAL TABLET PO SCH (08:43)
[2017-03-08] MEDS: NICOTINE PATCH REMOVAL TD SCH (08:43)
[2017-03-08] MEDS: NICOTINE 14 MG PATCH TD SCH (08:43)
--- NOTE | 2017-03-08 09:56 | XRay Report ---
Indication: run of VT PROCEDURE: XR chest 2V: Encounter: Initial Comparison: 03/03/2017 and CTA chest dated 04/22/2016 Findings: There are stable fracture deformities of the right lateral ribs. There is stable mild patchy diffuse interstitial prominence particularly in the right mid to lower lung arteaga. No definite lobar consolidation or pleural effusion. The patient has had fusion of the thoracolumbar junction with posterior shauna and pedicle screw fusion. Heart size is normal. Impression: Stable changes of interstitial lung disease without definite pleural effusion or lobar consolidation. .
[2017-03-08] MEDS: TAMSULOSIN 0.4 MG CAPSULE PO SCH (20:04)
[2017-03-08] MEDS: MIRTAZAPINE 15 MG TABLET PO SCH (20:04)
[2017-03-08] MEDS: DULOXETINE 60 MG CAPSULE PO SCH (20:04)
[2017-03-08] MEDS: ATORVASTATIN 10 MG TABLET PO SCH (20:05)
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
[2017-03-08 21:31] VITALS: BMI 24.0
[2017-03-08] MEDS: HALOPERIDOL 5 MG/ML INJECTION IM PRN (23:49)
[2017-03-08] MEDS: LORazepam 0.5 MG TABLET PO PRN (23:49)
[2017-03-09] MEDS: BUDESONIDE INH.SOLN 0.5mg/2ml NEB AEROSOL SCH ×2 (07:52→20:44)
[2017-03-09] MEDS: ALBUTEROL/IPRATROPIUM 2.5mg-0.5mg/3ml NEB AEROSOL SCH ×4 (07:52→20:44)
[2017-03-09] MEDS: MULTI-VITAMIN + MINERAL TABLET PO SCH (08:51)
[2017-03-09] MEDS: METHADONE 10 MG TABLET PO SCH ×4 (08:51→21:04)
[2017-03-09] MEDS: GABAPENTIN 800 MG TABLET PO SCH ×4 (08:51→21:04)
[2017-03-09] MEDS: ASPIRIN 81 MG CHEWABLE TABLET PO SCH (08:52)
[2017-03-09] MEDS: NICOTINE 14 MG PATCH TD SCH (08:54)
[2017-03-09] MEDS: PredniSONE 10 MG TABLET PO SCH (08:58)
[2017-03-09] MEDS: NICOTINE PATCH REMOVAL TD SCH (09:00)
[2017-03-09] MEDS: POLYETHYL GLYCOL 3350 17gm PACKET PO SCH (09:04)
[2017-03-09] MEDS: SENNA + DOCUSATE TABLET PO SCH ×2 (09:05→21:06)
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
[2017-03-09] MEDS: HALOPERIDOL 1 MG TABLET PO PRN ×2 (12:25→19:25)
[2017-03-09] MEDS: INSULIN ASPART 100unit/ml INJECTION SQ PRN (14:06)
[2017-03-09] MEDS: METFORMIN 500 MG TABLET PO SCH (17:32)
[2017-03-09] MEDS: MIRTAZAPINE 15 MG TABLET PO SCH (21:04)
[2017-03-09] MEDS: ATORVASTATIN 10 MG TABLET PO SCH (21:04)
[2017-03-09] MEDS: TAMSULOSIN 0.4 MG CAPSULE PO SCH (21:04)
[2017-03-09] MEDS: HALOPERIDOL 5 MG/ML INJECTION IM PRN (22:02)
[2017-03-09] MEDS: LORazepam 0.5 MG TABLET PO PRN (22:02)
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
[2017-03-10] MEDS: HALOPERIDOL 1 MG TABLET PO PRN (04:39)
[2017-03-10] MEDS: ACETAMINOPHEN 325 MG TABLET PO PRN (04:39)
[2017-03-10 07:26] VITALS: TEMP 97.1
[2017-03-10] MEDS: ALBUTEROL/IPRATROPIUM 2.5mg-0.5mg/3ml NEB AEROSOL SCH (07:38)
[2017-03-10] MEDS: BUDESONIDE INH.SOLN 0.5mg/2ml NEB AEROSOL SCH (07:38)
[2017-03-10 07:44] VITALS: RESP 12
[2017-03-10 08:24] VITALS: BP 111/85
[2017-03-10] MEDS ORDERED: DULOXETINE 60 MG CAPSULE PO SCH (09:00)
[2017-03-10] MEDS ORDERED: CALCIUM CITRATE 315mg + VIT.D 250units TABLET PO SCH (09:00)
[2017-03-10] MEDS: METFORMIN 500 MG TABLET PO SCH (09:02)
[2017-03-10] MEDS: GABAPENTIN 800 MG TABLET PO SCH (09:02)
[2017-03-10] MEDS: MULTI-VITAMIN + MINERAL TABLET PO SCH (09:02)
[2017-03-10] MEDS: METHADONE 10 MG TABLET PO SCH (09:03)
[2017-03-10] MEDS: ASPIRIN 81 MG CHEWABLE TABLET PO SCH (09:04)
[2017-03-10] MEDS: NICOTINE 14 MG PATCH TD SCH (09:04)
[2017-03-10] MEDS: SENNA + DOCUSATE TABLET PO SCH (09:04)
[2017-03-10] MEDS: POLYETHYL GLYCOL 3350 17gm PACKET PO SCH (09:04)
[2017-03-10] MEDS: PredniSONE 10 MG TABLET PO SCH (09:05)
[2017-03-10] MEDS: NICOTINE PATCH REMOVAL TD SCH (09:05)
--- NOTE | 2017-03-10 09:39 | Extended Care Facility Orders ---
Admission Orders Admit to:: [facility] Allergies/Adverse Reactions: Allergies diazepam Adverse Reaction (Unknown, Verified 02/17/17 15:21) COMBATIVE PER DAUGHTER PT CAN BECOME COMBATIVE WITH LARGE DOSES, SMALL DOES NO ADVERSE EFFECTS. Admitting Diagnosis: encephalopathy Admitting Physician: Jeremiah Murray MD Attending Physician: Jeremiah Murray MD Code Status: Full Code Anticiapted Length of Stay: greater than 30 days Rehab Potential: fair Rehab Prognosis: fair Diet: 02/24/17 Dinner Consistent Carbohydrate Diet [DIET] Calorie Level: 2400 Food Consistency: SOFT Comment: CHOPPED MEATS May use Facility Protocol or Standing Orders: Yes May have flu vaccine: Yes - Additional Information Referrals: Victoria Suarez APRN [Family Provider] -
[2017-03-10 09:45] VITALS: O2SAT 94
[2017-03-10 10:17] VITALS: PULSE 62
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
--- NOTE | 2017-03-19 13:19 | Echocardiogram ---
DATE OF SERVICE 03/08/2017 INDICATION Ventricular tachycardia. TECHNICAL QUALITY Technically good 2-D, M-mode, Doppler echocardiographic images were submitted for interpretation. FINDINGS 1. CARDIAC CHAMBERS. All cardiac chamber measurements are normal. Aortic root diameter is normal. RV size and contractility appeared normal. 2. LEFT VENTRICLE. Wall thickness is normal--measured 10 mm. Wall motion analysis shows septal and posterior hypokinesis. LV systolic function appears to be preserved/low-normal range. Ejection fraction is estimated at 50%. Anterior and apical wall contractility appears preserved. Diastolic function analysis shows E/A ratio of 0.7, E/E' ratio 8.4 3. VALVES. Aortic, mitral and tricuspid valve structure and motion appear normal for age with normal valve excursion. Aortic valve appears to be trileaflet, opens widely. 4. DOPPLER. Shows at least moderate tricuspid regurgitation, very mild regurgitation involving all other three valves noted. No stenosis. Normal flow velocities. 5. Pulmonary hypertension, systolic PA pressure estimated at 41 mmHg. 6. No evidence of pericardial effusion, intracardiac masses or demonstrable shunts. IMPRESSION. 1. Preserved LV systolic/low-normal, LVEF estimated at 50%, with subtle regional wall motion abnormalities. 2. Moderate tricuspid regurgitation. 3. Mild pulmonary hypertension. MTDD
== END 2017-03-10 10:10 | DRG 70 ==
LOC: ED 14:55 → CCU 14:55 → SUATTDRO 02-18 10:15 → MED 02-19 17:16
PROVIDERS: ADMIT Hospitalist; ATTEND Hospitalist